=== PATIENT | female | born 1950 | race African-American/Black ===

== ENCOUNTER → 2017-06-13 | Outpatient (CLI) | payer MEDICARE, OTHER ==
[2017-06-13 09:48] LABS: ALT 25 U/L (9-52); AST 20 U/L (14-36); Alkaline Phosphatase 87 U/L (38-126); Anion Gap 10 mmol/L; Blood Urea Nitrogen 25 mg/dL (7-17); Calcium 9.6 mg/dL (8.4-10.2); Carbon Dioxide 23 mmol/L (22-30); Chloride 108 mmol/L (98-107); Cholesterol 110 mg/dL (<200); Glucose 117 mg/dL (74-99); HDL Cholesterol 41 mg/dL (40-60); Non-African American GFR(MDRD) 55 (>60 ml/min/1.73 sqM); Potassium 4.1 mmol/L (3.5-5.1); Sodium 141 mmol/L (137-145); Total Bilirubin 0.6 mg/dL (0.2-1.3); Total Protein 7.4 g/dL (6.3-8.2)
== END | disposition home or self-care (01) ==
LOC: LABWHC1 09:03
PROVIDERS: ATTEND Internal Medicine Clinical Cardiac Electrophysiology
DX: E78.5 Hyperlipidemia, unspecified (principal); I25.10 Atherosclerotic heart disease of native coronary artery without angina pectoris; Z95.1 Presence of aortocoronary bypass graft
CPT/HCPCS: 36415; 80053; 80061; 84443

== ENCOUNTER 2017-07-23 10:01 | Observation (INO) | payer MEDICARE, OTHER ==
[2017-07-23] MEDS ORDERED: SODIUM CHLORIDE 0.9% 500 ML IV STA (10:43)
[2017-07-23] MEDS ORDERED: ONDANSETRON 4 MG/2 ML VIAL IVP STA (10:43)
[2017-07-23] MEDS ORDERED: SODIUM CHLORIDE 0.9% 1,000 ML IV STA (10:43)
[2017-07-23] MEDS ORDERED: ACETAMINOPHEN IV (For NPO) 1,000 MG in EMPTY BAG 1 BAG IVPB STA (10:46)
[2017-07-23] MEDS ORDERED: ORPHENADRINE 30 MG/ML 2 ML VIAL IVP STA (10:46)
[2017-07-23] MEDS ORDERED: RX INFO: IV CONTRAST WAS GIVEN 1 EACH MISC MISCELLANE PRN (10:47)
[2017-07-23 11:38] LABS: Appearance,Urine Clear (Clear); Bacteria,Urine Rare /hpf; Bilirubin,Urine Negative (Negative); Glucose,Urine (UA) Negative (Negative); Ketones,Urine Negative (Negative); Leukocyte Esterase,Urine Moderate (Negative); Nitrite,Urine Negative (Negative); PH, Urine 5.5 (5.0-8.0); Particle Count 1098; Protein,Urine Negative (Negative); RBC,Urine 1 /hpf (0-5); Specific Gravity,Urine 1.013 (1.001-1.035); Squamous Epithelial Cell,Urine <1 /hpf (0-4); UA Billing (MACRO vs. MICRO) MICRO; Urobilinogen,Urine <2.0 mg/dL (<2.0); WBC,Urine 3 /hpf (0-5)
[2017-07-23 11:49] LABS: Basophils % (A) 0 %; CH 30.9; CHCM 33.3; Eosinophils # (A) 0.1 k/uL (0-0.7); Eosinophils % (A) 1 %; HCT 41.4 % (34.0-46.0); HDW 2.71; HGB 13.9 gm/dL (11.4-16.0); Luc # (Auto) 0.12; Luc % (Auto) 1; Lymphocytes # (A) 1.7 k/uL (1.0-4.8); Lymphocytes % (A) 14 %; MCH 31.3 pg (25.0-35.0); MCHC 33.6 g/dL (31.0-37.0); MCV 93.2 fL (80.0-100.0); Mean Platelet Volume 7.1; Monocytes # (A) 0.5 k/uL (0-1.0); Monocytes % (A) 4 %; Neutrophils % (A) 81 %; RBC 4.44 m/uL (3.80-5.40); RDW 13.2 % (11.5-15.5); WBC 12.3 k/uL (3.8-10.6); WBC (Perox) 12.71
[2017-07-23 12:08] LABS: Prothrombin Time 9.9 sec (9.0-12.0)
[2017-07-23 12:12] LABS: ALT 9 U/L (9-52); AST 38 U/L (14-36); Alkaline Phosphatase 97 U/L (38-126); Anion Gap 15 mmol/L; Blood Urea Nitrogen 32 mg/dL (7-17); Calcium 10.7 mg/dL (8.4-10.2); Carbon Dioxide 21 mmol/L (22-30); Chloride 104 mmol/L (98-107); Creatine Kinase 83 U/L (30-135); Glucose 147 mg/dL (74-99); Magnesium 1.8 mg/dL (1.6-2.3); Non-African American GFR(MDRD) 59 (>60 ml/min/1.73 sqM); Phosphorous 3.5 mg/dL (2.5-4.5); Sodium 140 mmol/L (137-145); Total Bilirubin 0.6 mg/dL (0.2-1.3)
[2017-07-23 12:14] LABS: Partial Thromboplastin Time 22.5 sec (22.0-30.0)
[2017-07-23 12:23] LABS: Creatine Kinase MB 0.7 ng/mL (0.0-2.4); Troponin I <0.012 ng/mL (0.000-0.034)
--- NOTE | 2017-07-23 13:06 | ED ---
General Adult HPI - General Chief complaint: Neck Pain/Injury Stated complaint: NECK PAIN Time Seen by Provider: 07/23/17 10:24 Source: patient, RN notes reviewed, old records reviewed Mode of arrival: ambulatory Limitations: no limitations - History of Present Illness Initial comments: This is a 66-year-old female to the ER for evaluation. This patient presents for evaluation regarding neck pain neck and headache. Severe posterior headache anterior headache. Patient states she has history of some chronic back pain over the last 5 days is been severely worse. She states she had a fall 2 years ago on history of that's related. Patient was seen by both her family doctor in urgent care in the last week and was told to come to the ER if no significant improvement in symptoms. Patient has multiple medication ALLERGIES and is having difficult time with pain control at home. She woke up today with severe nausea and dizziness worsened she has had in the past. She cannot move her neck secondary to severe pain. Patient denies any fevers or vomiting. - Related Data Home Medications Medication Instructions Recorded Confirmed Albuterol Inhaler [Ventolin Hfa 2 puff INHALATION RT-Q4H PRN 12/05/14 07/23/17 Inhaler] Allopurinol [Zyloprim] 300 mg PO DAILY 12/05/14 07/23/17 Enalapril [Vasotec] 10 mg PO DAILY 12/05/14 07/23/17 Furosemide [Lasix] 40 mg PO QAM 12/05/14 07/23/17 Insulin Glargine [Lantus] 24 unit SQ DAILY@1200 12/05/14 07/23/17 Isosorbide Mononitrate ER [Imdur] 30 mg PO DAILY 12/05/14 07/23/17 Spironolactone [Aldactone] 25 mg PO DAILY 12/05/14 07/23/17 Furosemide [Lasix] 20 mg PO HS 07/23/17 07/23/17 Insulin Aspart [NovoLOG] See Protocol SQ AC-TID 07/23/17 07/23/17 Magnesium Oxide [Mag-Ox] 400 mg PO DAILY 07/23/17 07/23/17 Ubidecarenone [Co Q-10] 100 mg PO DAILY 07/23/17 07/23/17 metFORMIN HCL 1,000 mg PO BID 07/23/17 07/23/17 Previous Rx's Medication Instructions Recorded Carvedilol 25 mg PO BID #0 12/07/14 Allergies Allergy/AdvReac Type Severity Reaction Status Date / Time acetaminophen [From [place]] AdvReac Rash/Hives Verified 07/23/17 10:15 aspirin AdvReac Rash/Hives Verified 07/23/17 10:15 butorphanol tartrate AdvReac Rash/Hives Verified 07/23/17 10:15 [From Stadol] codeine AdvReac Rash/Hives Verified 07/23/17 10:15 diazepam [From Valium] AdvReac Rash/Hives Verified 07/23/17 10:15 hydrocodone bitartrate AdvReac Rash/Hives Verified 07/23/17 10:15 [From [place]] hydromorphone [From Dilaudid] AdvReac Unknown Verified 07/23/17 10:15 meperidine HCl [From Demerol] AdvReac Rash/Hives Verified 07/23/17 10:15 morphine AdvReac Rash/Hives Verified 07/23/17 10:15 Penicillins AdvReac Rash/Hives Verified 07/23/17 10:15 procaine HCl [From Novocain] AdvReac Rash/Hives Verified 07/23/17 10:15 sulfamethoxazole AdvReac Rash/Hives Verified 07/23/17 10:15 [From Bactrim] sumatriptan [From Imitrex] AdvReac Rash/Hives Verified 07/23/17 10:15 sumatriptan succinate AdvReac Rash/Hives Verified 07/23/17 10:15 [From Imitrex] tramadol AdvReac Rash/Hives Verified 07/23/17 10:15 trimethoprim [From Bactrim] AdvReac Rash/Hives Verified 07/23/17 10:15 Review of Systems ROS Statement: Those systems with pertinent positive or pertinent negative responses have been documented in the HPI. ROS Other: All systems not noted in ROS Statement are negative. Past Medical History Past Medical History: Coronary Artery Disease (CAD), Chest Pain / Angina, CVA/ TIA, Diabetes Mellitus, GERD/Reflux, Hyperlipidemia, Hypertension, Seizure Disorder Additional Past Medical History / Comment(s): HX MIGRAINE, GOUT, CHRONIC SINUSITIS, LAST SEIZURE IN S, TIA IN S History of Any Multi-Drug Resistant Organisms: None Reported Past Surgical History: Cholecystectomy, Coronary Bypass/CABG, Heart Catheterization With Stent, Tubal Ligation Additional Past Surgical History / Comment(s): UNSURE HOW MANY STENTS, JULIA CATARACTS, SINUS SX, CABG X3 2009 Past Anesthesia/Blood Transfusion Reactions: No Reported Reaction Date of Last Stent Placement:: UNSURE Past Psychological History: No Psychological Hx Reported Smoking Status: Never smoker Past Alcohol Use History: None Reported Past Drug Use History: None Reported - Past Family History Mother Family Medical History: Coronary Artery Disease (CAD) General Exam Limitations: no limitations General appearance: alert, in no apparent distress Head exam: Present: atraumatic, normocephalic, normal inspection Eye exam: Present: normal appearance, PERRL, EOMI. Absent: scleral icterus, conjunctival injection, periorbital swelling ENT exam: Present: normal exam, mucous membranes moist Neck exam: Present: normal inspection. Absent: tenderness, meningismus, lymphadenopathy Respiratory exam: Present: normal lung sounds bilaterally. Absent: respiratory distress, wheezes, rales, rhonchi, stridor Cardiovascular Exam: Present: regular rate, normal rhythm, normal heart sounds. Absent: systolic murmur, diastolic murmur, rubs, gallop, clicks GI/Abdominal exam: Present: soft, normal bowel sounds. Absent: distended, tenderness, guarding, rebound, rigid Extremities exam: Present: normal inspection, full ROM, normal capillary refill. Absent: tenderness, pedal edema, joint swelling, calf tenderness Back exam: Present: normal inspection Neurological exam: Present: alert, oriented X3, CN II-XII intact Psychiatric exam: Present: normal affect, normal mood Skin exam: Present: warm, dry, intact, normal color. Absent: rash Course Vital Signs 07/23/17 07/23/17 10:04 13:50 Temperature 98.3 F 97.9 F Pulse Rate 77 69 Respiratory 18 18 Rate Blood Pressure 188/80 142/79 O2 Sat by Pulse 100 96 Oximetry - Reevaluation(s) Reevaluation #1: 07/23/17 14:16 patient will have pain control, no neuro deficit Medical Decision Making - Medical Decision Making 66 female to ED with uncontrolled neck pain, will admit for ortho evaluation, pain control - Lab Data Result diagrams: 07/23/17 11:16 07/23/17 11:16 Lab Results 07/23/17 07/23/17 07/23/17 Range/Units 11:16 11:16 11:16 WBC 12.3 H (3.8-10.6) k/uL RBC 4.44 (3.80-5.40) m/uL Hgb 13.9 (11.4-16.0) gm/dL Hct 41.4 (34.0-46.0) % MCV 93.2 (80.0-100.0) fL MCH 31.3 (25.0-35.0) pg MCHC 33.6 (31.0-37.0) g/dL RDW 13.2 (11.5-15.5) % Plt Count 349 (150-450) k/uL Neutrophils % 81 % Lymphocytes % 14 % Monocytes % 4 % Eosinophils % 1 % Basophils % 0 % Neutrophils # 10.0 H (1.3-7.7) k/uL Lymphocytes # 1.7 (1.0-4.8) k/uL Monocytes # 0.5 (0-1.0) k/uL Eosinophils # 0.1 (0-0.7) k/uL Basophils # 0.0 (0-0.2) k/uL PT (9.0-12.0) sec INR (<1.2) APTT (22.0-30.0) sec Sodium 140 (137-145) mmol/L Potassium 5.0 (3.5-5.1) mmol/L Chloride 104 (98-107) mmol/L Carbon Dioxide 21 L (22-30) mmol/L Anion Gap 15 mmol/L BUN 32 H (7-17) mg/dL Creatinine 0.94 (0.52-1.04) mg/dL Est GFR (MDRD) Af Amer >60 (>60 ml/min/1.73 sqM) Est GFR (MDRD) Non-Af 59 (>60 ml/min/1.73 sqM) Glucose 147 H (74-99) mg/dL Calcium 10.7 H (8.4-10.2) mg/dL Phosphorus 3.5 (2.5-4.5) mg/dL Magnesium 1.8 (1.6-2.3) mg/dL Total Bilirubin 0.6 (0.2-1.3) mg/dL AST 38 H (14-36) U/L ALT 9 (9-52) U/L Alkaline Phosphatase 97 (38-126) U/L Total Creatine Kinase 83 (30-135) U/L CK-MB (CK-2) 0.7 (0.0-2.4) ng/mL CK-MB (CK-2) Rel Index 0.8 Troponin I <0.012 (0.000-0.034) ng/mL Total Protein 9.0 H (6.3-8.2) g/dL Albumin 4.6 (3.5-5.0) g/dL Urine Color Urine Appearance (Clear) Urine pH (5.0-8.0) Ur Specific [place] (1.001-1.035) Urine Protein (Negative) Urine Glucose (UA) (Negative) Urine Ketones (Negative) Urine Blood (Negative) Urine Nitrite (Negative) Urine Bilirubin (Negative) Urine Urobilinogen (<2.0) mg/dL Ur Leukocyte Esterase (Negative) Urine RBC (0-5) /hpf Urine WBC (0-5) /hpf Ur Squamous Epith Cells (0-4) /hpf Urine Bacteria (None) /hpf Hyaline Casts (0-2) /lpf 07/23/17 07/23/17 Range/Units 11:16 11:16 WBC (3.8-10.6) k/uL RBC (3.80-5.40) m/uL Hgb (11.4-16.0) gm/dL Hct (34.0-46.0) % MCV (80.0-100.0) fL MCH (25.0-35.0) pg MCHC (31.0-37.0) g/dL RDW (11.5-15.5) % Plt Count (150-450) k/uL Neutrophils % % Lymphocytes % % Monocytes % % Eosinophils % % Basophils % % Neutrophils # (1.3-7.7) k/uL Lymphocytes # (1.0-4.8) k/uL Monocytes # (0-1.0) k/uL Eosinophils # (0-0.7) k/uL Basophils # (0-0.2) k/uL PT 9.9 (9.0-12.0) sec INR 1.0 (<1.2) APTT 22.5 (22.0-30.0) sec Sodium (137-145) mmol/L Potassium (3.5-5.1) mmol/L Chloride (98-107) mmol/L Carbon Dioxide (22-30) mmol/L Anion Gap mmol/L BUN (7-17) mg/dL Creatinine (0.52-1.04) mg/dL Est GFR (MDRD) Af Amer (>60 ml/min/1.73 sqM) Est GFR (MDRD) Non-Af (>60 ml/min/1.73 sqM) Glucose (74-99) mg/dL Calcium (8.4-10.2) mg/dL Phosphorus (2.5-4.5) mg/dL Magnesium (1.6-2.3) mg/dL Total Bilirubin (0.2-1.3) mg/dL AST (14-36) U/L ALT (9-52) U/L Alkaline Phosphatase (38-126) U/L Total Creatine Kinase (30-135) U/L CK-MB (CK-2) (0.0-2.4) ng/mL CK-MB (CK-2) Rel Index Troponin I (0.000-0.034) ng/mL Total Protein (6.3-8.2) g/dL Albumin (3.5-5.0) g/dL Urine Color Yellow Urine Appearance Clear (Clear) Urine pH 5.5 (5.0-8.0) Ur Specific [place] 1.013 (1.001-1.035) Urine Protein Negative (Negative) Urine Glucose (UA) Negative (Negative) Urine Ketones Negative (Negative) Urine Blood Trace H (Negative) Urine Nitrite Negative (Negative) Urine Bilirubin Negative (Negative) Urine Urobilinogen <2.0 (<2.0) mg/dL Ur Leukocyte Esterase Moderate H (Negative) Urine RBC 1 (0-5) /hpf Urine WBC 3 (0-5) /hpf Ur Squamous Epith Cells <1 (0-4) /hpf Urine Bacteria Rare H (None) /hpf Hyaline Casts 10 H (0-2) /lpf - Radiology Data Radiology results: report reviewed (CT brain angio head and neck is negative for acute disease), image reviewed Disposition Clinical Impression: Strain of neck muscle, Disc disorder of cervical region, Cervical radiculopathy Disposition: ADMITTED IP TO THIS HOSP Condition: Fair Referrals: Boaz Mcgovern MD [Primary Care Provider] - 1-2 days
--- NOTE | 2017-07-23 13:25 | CT ---
EXAMINATION TYPE: CT brain wo con DATE OF EXAM: 07/23/2017 COMPARISON: 08/31/2011 HISTORY: Patient complains of headache and neck pain. CT DLP: 808.1 mGycm. Automated Exposure Control for Dose Reduction was Utilized. TECHNIQUE: CT scan of the head is performed without contrast. FINDINGS: There is no acute intracranial hemorrhage, mass effect, or midline shift identified. Ther e is symmetric prominence of the ventricular system and peripheral sulci compatible with minimal age- related volume loss, similar to the prior exam. Few scattered areas of T2 hyperintensity are seen wit hin the subcortical and periventricular white matter, as seen on the prior examination in 2010. No [place] spicious extra-axial fluid collection is identified. The globes are intact and the visualized sinuses are clear. Atherosclerosis is seen of the intracranial vasculature. IMPRESSION: No acute intracranial hemorrhage, mass effect, or midline shift is seen. Similar-appeari ng mild nonspecific white matter changes and minimal likely age-related cerebral atrophy in compariso n the prior exam of 2010.
--- NOTE | 2017-07-23 13:42 | CT ---
EXAMINATION TYPE: CT angio head neck DATE OF EXAM: 07/23/2017 HISTORY: Head pain and neck pain COMPARISON: CT brain of the same date CT DLP: 808.1 mGycm. Automated Exposure Control for Dose Reduction was Utilized. TECHNIQUE: CTA scan of the neck is performed with IV Contrast, per protocol, axial images are obtain ed, coronal and sagittal reformatted images are reviewed. Three-D reconstructed images are created on an independent workstation and reviewed. FINDINGS: Carotid/Vascular Structures: Minimal nonhemodynamically significant calcific atheromatous plaquing is seen of the bilateral cavernous portions and supraclinoid portions of the internal carotid arteries. This is less than 50% of the luminal diameter. The [place] of [place] is intact although the right pos terior communicating artery is diminutive. There is tortuosity of the left vertebral artery as it cou rses to the right of midline. Vertebral arteries are codominant without evidence of dissection or gali nosis. Note is made of a bovine aortic arch. No ostial stenosis is seen at the origin of the great vessels. Within the carotid bulbs there is atheromatous calcific plaquing, nonhemodynamically significant on t he left and creating 50% stenosis of the left internal carotid artery within a short segment of 6 mm just distal to the bifurcation. Other: Within the visualized lung apices there is minimal dependent subsegmental atelectasis. Multile maxwell degenerative changes of the cervical spine are seen displayed is uncovertebral hypertrophy, inter vertebral disc space narrowing, disc osteophyte complexes and facet arthropathy. Heterogeneity of the thyroid gland is noted. IMPRESSION: 1. No evidence of arterial occlusion, dissection or aneurysm within the head or neck. 2. Short segment stenosis created by calcific atheromatous changes of 50% of the left internal caroti d artery just distal to the left carotid bulb spanning 6 mm in length.
[2017-07-23] MEDS ORDERED: ALBUTEROL NEBULIZED 2.5 MG/3 ML INHALATION PRN (15:35)
--- NOTE | 2017-07-23 16:23 | XR ---
EXAMINATION TYPE: XR cervical spine comp DATE OF EXAM: 07/23/2017 TECHNIQUE: Frontal, lateral, oblique, swimmers, and open mouth view of the cervical spine are obtaine d. HISTORY: neck stiff with discogenic disease and severe pain COMPARISON: CT angiogram head and neck dated 07/23/2017. Radiographs of the cervical spine dated 013 FINDINGS: Multilevel degenerative disc disease is seen most pronounced at C4-C5, C5-C6 and C6-C7. Yunier ral foraminal narrowing at least mild in degree is present at C3-C4 on the left. Right neural foramen appear overall radiographically patent. Multilevel mild uncovertebral hypertrophy is seen. This has progressed from the prior exam. The cervical spine is visualized in its entirety from C1 thru the top of T1 level, it is satisfactory in alignment without evidence of acute fracture or dislocation. The pre-vertebral soft tissue appears within normal limits. The C1-C2 articulation is within normal lyle its on the open mouth view. The oblique images are within normal limits. Partial visualization of me diane sternotomy wires are seen with dehiscence of the most superior sternotomy wire. As seen on the p rior CTA dated 07/23/2017 atheromatous calcifications are seen of the left internal carotid artery. IMPRESSION: 1. No acute fracture or dislocation is seen in the cervical spine. 2. Multilevel degenerative disc disease, progressed from the prior exam of 01/20/2013 with at least mil d neural foraminal stenosis at C3-C4 on the left.
--- NOTE | 2017-07-23 16:25 | XR ---
EXAMINATION TYPE: XR thoracic spine complete DATE OF EXAM: 07/23/2017 CLINICAL HISTORY: Fall with mid back pain. TECHNIQUE: Frontal, lateral, and swimmer's view of thoracic spine are obtained. COMPARISON: None. FINDINGS: Thoracic spine show satisfactory alignment without evidence of acute fracture or dislocatio n. Flowing osteophytes are present of the anterior thoracic spine suggestive of moderate degenerativ e change. Vertebral body heights and disc space heights are preserved. Visualized ribs are unremarkab le. Dehiscence of multiple sternotomy wires are seen as well as mediastinal clips. Surgical clips a re also noted in the left upper quadrant and right upper quadrant. IMPRESSION: 1. No acute fracture or dislocation is seen in the thoracic spine. 2. Multilevel degenerative disc disease, at least moderate in degree. 3. Dehiscence of multiple median sternotomy wires and postsurgical changes of the chest and upper abd omen.
--- NOTE | 2017-07-23 17:30 | P.HPIM ---
History of Present Illness This is a dictation on admission history and physical date of service [address] Froilan Green [facility] Patient has no ALLERGY to Tylenol. And order was written as patient has ALLERGY for oral narcotics but not for a C2 metanephrine she had ALLERGY to Dilaudid and morphine Toradol and hydrocodone and codeine. Chief complaint: Patient had severe neck pain for 1 week duration with inability to sleep to sit or to do all her daily ADLs, disabling pain in the neck and goes down to cervical spine to dorsal spine. Patient went to the ER at [facility] she was treated with injection of Dilantin, she came back in a.m. to the office with the acute reaction from Dilantin and treated with Kenalog IM 40 mg. Today patient came to the office with this severe pain in the neck with the stiffness and localized tenderness on the cervical spine, associated with numbness of the upper extremities intermittent on the left arm and on the right arm, stent with taking the ulnar side of her hand. Her foot flexion and extension has been compromised with wobbly feet. I did advise her to come to the emergency room for evaluation, however patient received computed tomography scan of the brain which is normal and we know that it is normal, and she received a CTA neck which consult rating on the blood flow in the neck and despite that patient had localized tenderness on the cervical spine by just palpation which causing also severe pain the level of 12/ 10. History of present illness: Patient with history of chronic medical problem however these event started 1 week ago and progressively she could not sit or stand or sleep and the associated with severe pain in her neck could not move from [id number] or from posterior to anterior no evidence of infection. And her vital sign was stable and diabetes mellitus has been controlled so far. On her presentation in the emergency room: Found that she had hyper proteinemia , hypercalcemia, of unknown etiology. Magnesium was normal a suspicious of multiple myeloma was considered with the neck pain and far failure order has been placed for protein electrophoresis and immunoelectrophoresis as well as urine electrophoresis. Patient has a history of diabetes mellitus type 2 insulin-dependent she was on pump in the past and did not work for her and change it to regular insulin injection. She is on Plavix 75 mg daily and Lantus insulin 24 units daily at bedtime she is also on Lipitor 20 mg at at bedtime she was as well on enalapril 10 mg half a tablet daily as well as then to lean inhalation 4 history of COPD 19 micro-gram per inhalation. She is on Glucophage as well 1 tablet daily she is on Lasix 20 mg daily and Senokot S 50 mg/8.6 she is having ALLERGY and she used to take Margaret 24 hour which is 180 mg daily. She has been using Lamisil for acid-related foot 1% cream on the right toes and between the toes of the right foot she has also NovoLog and NovoLog 100 units she take according to scale before meals meal. She is history of gout and she take 150 mg once a day. Carvedilol 25 mg twice a day Lipitor 20 mg once a day at at bedtime and Pepcid 20 mg twice a day for GERD disease and she also was taken call Q10 300 mg once a day and salt magnesium oxide 400 mg 1 tablet daily and she taken Centrum Silver woman's and she taken metoprolol succinate ER 25 mg once a day and she taken isosorbide mononitrate 30 mg once a day. Reviewing of system neuropsychiatry negative and history of migraine only not present at this time Past history of T7 and T8 radiation. Cardiovascular: History of coronary artery bypass graft 3. Pulmonary history of COPD and using inhalation therapy GI no nausea or vomiting or diarrhea at this time but she has history of nausea in the past. Musculoskeletal she used to see Dr Tejas miner. And she used to be no limitation and no neck pain prior to these event. Endocrine diabetes mellitus2. Past history of T7 and T8 disc herniation. She had numbness in the right upper extremity the ulnar side, stent and numbness of the left upper extremity intermittent. She is able still to ambulate. Rest of reviewing of system is negative no hematochezia and no hematemesis no melena. On the physical examination: HEENT: The head was normocephalic and atraumatic pupil was reactive equal conjunctiva was pink sclera was nonicteric oropharynx was negative and she was able to eat. Neck supple however she could not move her neck [id number] or from anterior to posterior. With the palpation severe pain 10 over 10 or more especially with the palpation had C3, C4, C7. Could not lay flat with the pressure on the pill trachea midline. The chest: She had a central median scar from coronary artery bypass graft 3. No supraclavicular lymph nodes and no auxiliary lymph nodes. Breasts sound normal no wheezes nor rhonchi's. Heart regular sinus rhythm no pace maker. Abdomen soft positive bowel sound and no nausea or vomiting Extremities: Positive pulses and no edema with a history of tinea pedis resolved but she has a step for plantarflex and weaker in both lower his extremities dorsiflexion and plantar flexion. Assessment: #1 severe pain in the cervical spine on palpation with the neurological numbness and tingling in both upper extremities started within 1 week duration x-ray of the cervical spine indicate currently disc disease however x-ray is not too clear association and we will be obtaining MRI of cervical spine. #[address] Oniel Murdock orthopedic surgeon for evaluation and treatment and also the x-ray of the spine as well as the MRI. #3 unfortunately patient has ALLERGY to all pain medication and we will be using the Tylenol which is not ALLERGIC to until we have complete the investigation if we could not solve her problem probably will request a pain consult #4 hypercalcemia, hyper proteinemia unknown reason at this time however laboratory was ordered for 5 for clarification or association with other diseases as multiple myeloma. Plan: #1 will continue gentle hydration, obtain laboratory and will resume her Lipitor and Plavix after evaluation by Dr. Oniel lopez to continue her current home medication and the insulin to scale as well Past Medical History Past Medical History: Coronary Artery Disease (CAD), Chest Pain / Angina, CVA/ TIA, Diabetes Mellitus, GERD/Reflux, Hyperlipidemia, Hypertension, Seizure Disorder Additional Past Medical History / Comment(s): HX MIGRAINE, GOUT, CHRONIC SINUSITIS, LAST SEIZURE IN , TIA IN S History of Any Multi-Drug Resistant Organisms: None Reported Past Surgical History: Cholecystectomy, Coronary Bypass/CABG, Heart Catheterization With Stent, Tubal Ligation Additional Past Surgical History / Comment(s): UNSURE HOW MANY STENTS, JULIA CATARACTS, SINUS SX, CABG X3 2009 Past Anesthesia/Blood Transfusion Reactions: No Reported Reaction Date of Last Stent Placement:: UNSURE Past Psychological History: No Psychological Hx Reported Smoking Status: Never smoker Past Alcohol Use History: None Reported Past Drug Use History: None Reported - Past Family History Mother Family Medical History: Coronary Artery Disease (CAD) Medications and Allergies Home Medications Medication Instructions Recorded Confirmed Type Albuterol Inhaler [Ventolin Hfa 2 puff INHALATION RT-Q4H PRN 12/05/14 07/23/17 History Inhaler] Allopurinol [Zyloprim] 300 mg PO DAILY 12/05/14 07/23/17 History Enalapril [Vasotec] 10 mg PO DAILY 12/05/14 07/23/17 History Furosemide [Lasix] 40 mg PO QAM 12/05/14 07/23/17 History Insulin Glargine [Lantus] 24 unit SQ DAILY@1200 12/05/14 07/23/17 History Isosorbide Mononitrate ER [Imdur] 30 mg PO DAILY 12/05/14 07/23/17 History Spironolactone [Aldactone] 25 mg PO DAILY 12/05/14 07/23/17 History Carvedilol 25 mg PO BID #0 12/07/14 07/23/17 Rx Furosemide [Lasix] 20 mg PO HS 07/23/17 07/23/17 History Insulin Aspart [NovoLOG] See Protocol SQ AC-TID 07/23/17 07/23/17 History Magnesium Oxide [Mag-Ox] 400 mg PO DAILY 07/23/17 07/23/17 History Ubidecarenone [Co Q-10] 100 mg PO DAILY 07/23/17 07/23/17 History metFORMIN HCL 1,000 mg PO BID 07/23/17 07/23/17 History Allergies Allergy/AdvReac Type Severity Reaction Status Date / Time acetaminophen [From [place]] AdvReac Rash/Hives Verified 07/23/17 10:15 aspirin AdvReac Rash/Hives Verified 07/23/17 10:15 butorphanol tartrate AdvReac Rash/Hives Verified 07/23/17 10:15 [From Stadol] codeine AdvReac Rash/Hives Verified 07/23/17 10:15 diazepam [From Valium] AdvReac Rash/Hives Verified 07/23/17 10:15 hydrocodone bitartrate AdvReac Rash/Hives Verified 07/23/17 10:15 [From [place]] hydromorphone [From Dilaudid] AdvReac Unknown Verified 07/23/17 10:15 meperidine HCl [From Demerol] AdvReac Rash/Hives Verified 07/23/17 10:15 morphine AdvReac Rash/Hives Verified 07/23/17 10:15 Penicillins AdvReac Rash/Hives Verified 07/23/17 10:15 procaine HCl [From Novocain] AdvReac Rash/Hives Verified 07/23/17 10:15 sulfamethoxazole AdvReac Rash/Hives Verified 07/23/17 10:15 [From Bactrim] sumatriptan [From Imitrex] AdvReac Rash/Hives Verified 07/23/17 10:15 sumatriptan succinate AdvReac Rash/Hives Verified 07/23/17 10:15 [From Imitrex] tramadol AdvReac Rash/Hives Verified 07/23/17 10:15 trimethoprim [From Bactrim] AdvReac Rash/Hives Verified 07/23/17 10:15 Physical Exam Vitals: Vital Signs Temp Pulse Pulse Resp BP BP Pulse Ox 07/23/17 16:37 97.6 F 66 20 137/68 98 07/23/17 13:50 97.9 F 69 18 142/79 96 07/23/17 10:04 98.3 F 77 18 188/80 100 Intake and Output 07/23/17 07/23/17 07/23/17 06:59 14:59 22:59 Other: Weight 72.121 kg Patient Weight 07/24/17 06:59 Weight 72.121 kg Results CBC & Chem 7: 07/23/17 11:16 07/23/17 11:16 Labs: Abnormal Lab Results - Last 24 Hours (Table) 07/23/17 07/23/17 07/23/17 Range/Units 11:16 11:16 11:16 WBC 12.3 H (3.8-10.6) k/uL Neutrophils # 10.0 H (1.3-7.7) k/uL Carbon Dioxide 21 L (22-30) mmol/L BUN 32 H (7-17) mg/dL Glucose 147 H (74-99) mg/dL Calcium 10.7 H (8.4-10.2) mg/dL AST 38 H (14-36) U/L Total Protein 9.0 H (6.3-8.2) g/dL Urine Blood Trace H (Negative) Ur Leukocyte Esterase Moderate H (Negative) Urine Bacteria Rare H (None) /hpf Hyaline Casts 10 H (0-2) /lpf
--- NOTE | 2017-07-23 17:57 | MR ---
EXAMINATION TYPE: MR cervical spine wo con DATE OF EXAM ORDERED: 07/23/2017 5:46 PM HISTORY: [place], pain on palpation of cervical spine. TECHNOLOGIST HISTORY AT TIME OF EXAM: [place], pain on palpation of cervical spine, Pain shot done 07-22-17 COMPARISON: None. TECHNIQUE: Multiplanar, multiecho imaging of the cervical spine was obtained without contrast on a 1 .5 dona magnet. FINDINGS: Prevertebral soft tissues are normal. Vertebral body height and alignment are maintained. Atlantoaxial relationships are normal. There is a normal craniocervical junction. Cord signal is normal. At C2-C3, no abnormality is seen. At C3-C4, there is left-sided intervertebral foraminal narrowing. There is no significant compressive discopathy. There is left facet arthropathy. At C4-C5, there is bilateral intervertebral foraminal narrowing, worse on the left than the right. Th ere is facet arthropathy on the left. There is no significant compressive discopathy. The uncovertebr al joints are unremarkable. At C5-C6, the intervertebral foramina are well maintained. There is a tiny central disc displacement deforming the thecal sac without cord contact there is mild facet arthropathy. There is mild uncovert ebral joint disease. At C6-C7, the intervertebral foramina are well maintained. There is no significant compressive discop athy. The facets are unremarkable. There is mild uncovertebral joint disease. At C7-T1, no definite abnormality is seen. No definite soft tissue abnormality is seen. IMPRESSION: 1. MILD DEGENERATIVE DISC DISEASE. 2. MULTILEVEL INTERVERTEBRAL FORAMINAL NARROWING. 3. MILD FACET AND UNCOVERTEBRAL JOINT DISEASE.
[2017-07-23] MEDS: ACETAMINOPHEN TAB 325 MG TAB PO PRN ×2 (18:09→21:53)
[2017-07-23] MEDS: CARVEDILOL 12.5 MG TAB PO SCH (18:10)
[2017-07-23] MEDS: metFORMIN 500 MG TAB PO SCH (18:37)
[2017-07-23] MEDS: INSULIN LISPRO (humaLOG) 300 UNIT/3 ML VIAL SQ SCH (18:38)
[2017-07-23 18:39] LABS: Glucose,Whole Blood 248 mg/dL (75-99)
[2017-07-23 20:14] VITALS: BMI 28.0
[2017-07-23] MEDS ORDERED: INSULIN GLARGINE 100 UNIT/ML 10 ML VIAL SQ SCH (21:00)
[2017-07-23] MEDS ORDERED: FUROSEMIDE 20 MG TAB PO SCH (21:00)
[2017-07-23 21:39] LABS: Glucose,Whole Blood 258 mg/dL (75-99)
[2017-07-23] MEDS: ATORVASTATIN 20 MG TAB PO SCH (21:53)
[2017-07-24] MEDS: ACETAMINOPHEN TAB 325 MG TAB PO PRN ×2 (06:19→21:20)
[2017-07-24 07:27] LABS: Glucose,Whole Blood 209 mg/dL (75-99)
[2017-07-24] MEDS: INSULIN LISPRO (humaLOG) 300 UNIT/3 ML VIAL SQ SCH ×3 (07:46→17:21)
[2017-07-24] MEDS: CARVEDILOL 12.5 MG TAB PO SCH ×2 (07:46→17:20)
[2017-07-24] MEDS: metFORMIN 500 MG TAB PO SCH ×2 (07:47→17:20)
[2017-07-24] MEDS: ALLOPURINOL 300 MG TAB PO SCH (07:47)
[2017-07-24] MEDS: MAGNESIUM OXIDE 400 MG TAB PO SCH (07:48)
[2017-07-24] MEDS: FUROSEMIDE 40 MG TAB PO SCH (07:48)
[2017-07-24] MEDS: LISINOPRIL 20 MG TAB PO SCH (07:48)
[2017-07-24] MEDS: ISOSORBIDE MONONITRATE ER 30 MG TAB.ER.24H PO SCH (07:48)
[2017-07-24] MEDS: SPIRONOLACTONE 25 MG TAB PO SCH (07:49)
--- NOTE | 2017-07-24 08:46 | P.CNOR ---
History of Present Illness - [facility] Consult date: 07/24/17 Requesting physician: Rafael Kirby Consult reason: neck pain (Right sided cervical pain, right upper extremity radiculopathy, and left upper extremity pain) History of present illness: Patient is a very pleasant 66-year-old female who is seen at bedside for further evaluation for her ongoing cervical pain and upper extremity pain and radiculopathy. Patient states she's been experiencing numbness and tingling down the right forearm to the right ring finger and pinky finger over the past 6 -7 months. Over the past week, she's been experiencing significant right-sided cervical pain that radiates up the posterior cervical spine, and over the head. She has pain that shoots over the right trapezius to the shoulder. She is also been experiencing pain down the left upper extremity. He states she has some weakness with the right upper extremity due to pain at the shoulder, biceps , and tricep. She admits to bilateral weakness with director biostatistics that has been ongoing. She denies any recent falls, accidents, or injuries. She states she does have a history of migraine headaches previously. She had an MRI of cervical spine prior to today's examination. She has significant difficulty with narcotic pain medication due to ALLERGY. She's currently being seen and examined by Dr. Mcgovern. Past Medical History Past Medical History: Coronary Artery Disease (CAD), Chest Pain / Angina, CVA/ TIA, Diabetes Mellitus, GERD/Reflux, Hyperlipidemia, Hypertension, Seizure Disorder Additional Past Medical History / Comment(s): HX MIGRAINE, GOUT, CHRONIC SINUSITIS, LAST SEIZURE IN 1979'S, TIA IN 1970'S History of Any Multi-Drug Resistant Organisms: None Reported Past Surgical History: Cholecystectomy, Coronary Bypass/CABG, Heart Catheterization With Stent, Tubal Ligation Additional Past Surgical History / Comment(s): UNSURE HOW MANY STENTS, JULIA CATARACTS, SINUS SX, CABG X3 2009 Past Anesthesia/Blood Transfusion Reactions: No Reported Reaction Date of Last Stent Placement:: UNSURE Past Psychological History: No Psychological Hx Reported Smoking Status: Never smoker Past Alcohol Use History: None Reported Past Drug Use History: None Reported - Past Family History Mother Family Medical History: Coronary Artery Disease (CAD) Medications and Allergies Home Medications Medication Instructions Recorded Confirmed Type Albuterol Inhaler [Ventolin Hfa 2 puff INHALATION RT-Q4H PRN 12/05/14 07/23/17 History Inhaler] Allopurinol [Zyloprim] 300 mg PO DAILY 12/05/14 07/23/17 History Enalapril [Vasotec] 10 mg PO DAILY 12/05/14 07/23/17 History Furosemide [Lasix] 40 mg PO QAM 12/05/14 07/23/17 History Insulin Glargine [Lantus] 24 unit SQ DAILY@1200 12/05/14 07/23/17 History Isosorbide Mononitrate ER [Imdur] 30 mg PO DAILY 12/05/14 07/23/17 History Spironolactone [Aldactone] 25 mg PO DAILY 12/05/14 07/23/17 History Carvedilol 25 mg PO BID #0 12/07/14 07/23/17 Rx Furosemide [Lasix] 20 mg PO HS 07/23/17 07/23/17 History Insulin Aspart [NovoLOG] See Protocol SQ AC-TID 07/23/17 07/23/17 History Magnesium Oxide [Mag-Ox] 400 mg PO DAILY 07/23/17 07/23/17 History Ubidecarenone [Co Q-10] 100 mg PO DAILY 07/23/17 07/23/17 History metFORMIN HCL 1,000 mg PO BID 07/23/17 07/23/17 History Allergies Allergy/AdvReac Type Severity Reaction Status Date / Time aspirin AdvReac Rash/Hives Verified 07/23/17 10:15 butorphanol tartrate AdvReac Rash/Hives Verified 07/23/17 10:15 [From Stadol] codeine AdvReac Rash/Hives Verified 07/23/17 10:15 diazepam [From Valium] AdvReac Rash/Hives Verified 07/23/17 10:15 hydrocodone bitartrate AdvReac Rash/Hives Verified 07/23/17 10:15 [From [place]] hydromorphone [From Dilaudid] AdvReac Unknown Verified 07/23/17 10:15 meperidine HCl [From Demerol] AdvReac Rash/Hives Verified 07/23/17 10:15 morphine AdvReac Rash/Hives Verified 07/23/17 10:15 Penicillins AdvReac Rash/Hives Verified 07/23/17 10:15 procaine HCl [From Novocain] AdvReac Rash/Hives Verified 07/23/17 10:15 sulfamethoxazole AdvReac Rash/Hives Verified 07/23/17 10:15 [From Bactrim] sumatriptan [From Imitrex] AdvReac Rash/Hives Verified 07/23/17 10:15 sumatriptan succinate AdvReac Rash/Hives Verified 07/23/17 10:15 [From Imitrex] tramadol AdvReac Rash/Hives Verified 07/23/17 10:15 trimethoprim [From Bactrim] AdvReac Rash/Hives Verified 07/23/17 10:15 Physical Examination Physical exam: Patient is awake, alert, and oriented 3 Vital signs stable Good chest excursion with deep inspiration and expiration Examination of the cervical spine reveals skin is intact with no abrasions, aspirations, or bruises; no erythema, purulence or signs of infection Some pain with palpation over the right trapezius and posterior cervical spine at approximately C7 Adequate range of motion of the cervical spine with adequate flexion, extension , and bilateral rotation Spasm over the right trapezius [employer] strength, thumb strength, interosseous strength, biceps strength, triceps strength, and shoulder strength positive sustained bilaterally Upper left extremity strength 5/5 bilaterally, except for director biostatistics which is 4-/5 [employer] strength of the left upper extremity is 4-/5 Reduced right upper extremity strength with triceps, biceps, and deltoid against resistance due to pain Adequate range of motion the right upper extremity with active and passive range of motion Biceps reflex 1+ bilaterally and Brachioradialis reflexes 1+ bilaterally No upper extremity hyperreflexia bilaterally Hoffmans sign negative upper extremity bilaterally No signs or symptoms of DVT; no calf pain Results MRI of the cervical spine: C3-4 left facet arthropathy and left neuroforaminal narrowing; C4-5 left facet arthropathy and bilateral neural foraminal narrowing greater on the left than right; C5-6 facet arthropathy; overall alignment appears to be adequately maintained; no evidence of vertebral body compression fracture; vertebral disc heights appear to be fairly well maintained with mild degenerative disc disease; no definite soft tissue abnormality seen; no evidence of significant spinal canal stenosis or neural foraminal stenosis throughout the cervical spine X-rays of thoracic spine: No evidence of acute fracture dislocation of thoracic spine; multilevel degenerative disc disease; evidence of multiple sternotomy wires; evidence of mediastinal clips; Evidence of surgical clips in the bilateral upper quadrants X-rays of the cervical spine: Mild early degenerative disc disease C4-5, C5-6, and C6-7; overall alignment appears to be adequately maintained; no evidence of vertebral body compression fracture - Labs Labs: Abnormal Lab Results - Last 24 Hours (Table) 07/23/17 07/23/17 07/23/17 Range/Units 11:16 11:16 11:16 WBC 12.3 H (3.8-10.6) k/uL Neutrophils # 10.0 H (1.3-7.7) k/uL Carbon Dioxide 21 L (22-30) mmol/L BUN 32 H (7-17) mg/dL Glucose 147 H (74-99) mg/dL POC Glucose (mg/dL) (75-99) mg/dL Calcium 10.7 H (8.4-10.2) mg/dL AST 38 H (14-36) U/L Total Protein 9.0 H (6.3-8.2) g/dL Total Protein (PEP) (6.2-8.2) g/dL Urine Blood Trace H (Negative) Ur Leukocyte Esterase Moderate H (Negative) Urine Bacteria Rare H (None) /hpf Hyaline Casts 10 H (0-2) /lpf 07/23/17 07/23/17 07/23/17 Range/Units 11:16 18:35 21:12 WBC (3.8-10.6) k/uL Neutrophils # (1.3-7.7) k/uL Carbon Dioxide (22-30) mmol/L BUN (7-17) mg/dL Glucose (74-99) mg/dL POC Glucose (mg/dL) 248 H 258 H (75-99) mg/dL Calcium (8.4-10.2) mg/dL AST (14-36) U/L Total Protein (6.3-8.2) g/dL Total Protein (PEP) 8.7 H (6.2-8.2) g/dL Urine Blood (Negative) Ur Leukocyte Esterase (Negative) Urine Bacteria (None) /hpf Hyaline Casts (0-2) /lpf 07/24/17 Range/Units 07:16 WBC (3.8-10.6) k/uL Neutrophils # (1.3-7.7) k/uL Carbon Dioxide (22-30) mmol/L BUN (7-17) mg/dL Glucose (74-99) mg/dL POC Glucose (mg/dL) 209 H (75-99) mg/dL Calcium (8.4-10.2) mg/dL AST (14-36) U/L Total Protein (6.3-8.2) g/dL Total Protein (PEP) (6.2-8.2) g/dL Urine Blood (Negative) Ur Leukocyte Esterase (Negative) Urine Bacteria (None) /hpf Hyaline Casts (0-2) /lpf H & H 07/23/17 Range/Units 11:16 Hgb 13.9 (11.4-16.0) gm/dL Hct 41.4 (34.0-46.0) % Coagulation 07/23/17 Range/Units 11:16 INR 1.0 (<1.2) Result Diagrams: 07/23/17 11:16 07/23/17 11:16 Assessment and Plan (1) Cervicalgia Status: Acute (2) Upper extremity weakness Status: Acute (3) Cervical spondylosis Status: Acute (4) Degenerative disc disease, cervical Status: Acute (5) Thoracic degenerative disc disease Status: Acute (6) Cervical radiculopathy Status: Acute Plan: Assessment: Right-sided cervical pain Right upper extremity radiculopathy Left upper extremity pain Mild cervical degenerative disc disease Cervical facet arthropathy Bilateral upper extremity weakness Thoracic degenerative disc disease Plan: 1. After further evaluation of the patient, reviewing of imaging, and physical examination of the patient, we're not currently planning for acute surgical intervention or further treatment in regards to the patient's cervical spine. She has been experiencing significant right-sided cervical pain with pain radiating up the posterior cervical spine and towards the right shoulder over the past week without injury. She states she is also had ongoing numbness and tingling in the right forearm, right knee finger, right ring finger over the past 6-7 months. She has some right upper extremity weakness due to pain. She has also been experiencing decreased director biostatistics bilaterally that is been ongoing. Imaging does not show evidence of significant spinal canal stenosis or neuroforaminal stenosis. At this time, we are not recommending surgical intervention as there not currently any indications in which surgical intervention would provide significant relief of symptoms. Patient also states she does not want surgical intervention. We are currently recommending she continue with conservative treatment. She does have significant ALLERGIES to multiple narcotic pain medications. At this time, we will plan to have pain management consult on the patient for further evaluation and to discuss possible treatment options. At this time, patient is clear for discharge from orthopedic spine standpoint. Following discharge, patient may follow-up on an as-needed basis. Patient has been discussed with Dr. Zelalem Vizcaino in detail and he agrees with this plan. 2. I will order consultation for pain management 3. Dr. Mcgovern in medicine will continue to follow patient for for treatment and evaluation Time with Patient: Less than 30
[2017-07-24 08:57] LABS: Basophils % (A) 0 %; CH 31.9; CHCM 33.7; Eosinophils # (A) 0.1 k/uL (0-0.7); Eosinophils % (A) 1 %; HCT 42.3 % (34.0-46.0); HDW 2.67; HGB 13.5 gm/dL (11.4-16.0); Luc % (Auto) 1; Lymphocytes # (A) 1.8 k/uL (1.0-4.8); Lymphocytes % (A) 17 %; MCH 30.3 pg (25.0-35.0); MCHC 31.8 g/dL (31.0-37.0); MCV 95.3 fL (80.0-100.0); Mean Platelet Volume 7.6; Monocytes # (A) 0.3 k/uL (0-1.0); Monocytes % (A) 3 %; Neutrophils # (A) 8.3 k/uL (1.3-7.7); Neutrophils % (A) 79 %; RBC 4.44 m/uL (3.80-5.40); RDW 14.1 % (11.5-15.5); WBC 10.6 k/uL (3.8-10.6); WBC (Perox) 10.35
[2017-07-24] MEDS ORDERED: SPIRONOLACTONE 25 MG TAB PO SCH (09:00)
[2017-07-24 09:32] LABS: Ionized Calcium 5.5 mg/dL (4.5-5.3)
[2017-07-24] MEDS: ENOXAPARIN 40 MG/0.4 ML SYRINGE SQ SCH (09:33)
[2017-07-24 10:06] LABS: Hemoglobin A1C 6.5 % (4.2-6.1)
[2017-07-24 10:13] LABS: ALT 26 U/L (9-52); AST 14 U/L (14-36); Alkaline Phosphatase 94 U/L (38-126); Anion Gap 14 mmol/L; Blood Urea Nitrogen 31 mg/dL (7-17); Calcium 10.1 mg/dL (8.4-10.2); Carbon Dioxide 22 mmol/L (22-30); Chloride 104 mmol/L (98-107); Cholesterol 133 mg/dL (<200); Glucose 228 mg/dL (74-99); HDL Cholesterol 44 mg/dL (40-60); Magnesium 1.6 mg/dL (1.6-2.3); Non-African American GFR(MDRD) 57 (>60 ml/min/1.73 sqM); Potassium 4.8 mmol/L (3.5-5.1); Sodium 140 mmol/L (137-145); Total Bilirubin 0.3 mg/dL (0.2-1.3); Total Protein 7.4 g/dL (6.3-8.2)
[2017-07-24] MEDS ORDERED: INSULIN GLARGINE 100 UNIT/ML 10 ML VIAL SQ SCH ×2 (12:00→21:00)
[2017-07-24 12:30] LABS: Glucose,Whole Blood 164 mg/dL (75-99)
[2017-07-24] MEDS: POLYETHYLENE GLYCOL 3350 17 GM POWD.PACK PO SCH (12:40)
[2017-07-24] MEDS: SODIUM CHLORIDE 0.9% 1,000 ML IV SCH (12:43)
--- NOTE | 2017-07-24 14:53 | P.PN ---
Subjective This is dictation in the progress note date of service 07/24/2017. Patient has intractable pain and level of pain is 9-10 over 10 which worsened during the night to 12/10. Patient seen by the orthopedic and that they reviewed the MRI with Dr. Vizcaino and they decided no surgical intervention however they did not help us with how to control the pain with the underlying severe pain with inability to move her head on the cervical area right to left or anteroposterior, meanwhile they consulted the pain clinic team, there is no response from them and I was told now that they only come from Thursday to , today is Thursday and we don't know how to help with the patient, patient is ALLERGIC to all the pain medication. I reviewed the lab today however the lab is not completed, she had elevated ionized calcium we do not have the PTH intact available. Also the other level of laboratory has been send out. On examination: Patient has still intractable pain in the neck with no help and will be consulting neurology for evaluation and treatment with the availability of the pain clinic or anesthesia to help for relieving the pain of the patient. Patient had already the MRI and was indicating still degenerative disc disease advanced. HEENT negative, oropharynx normal with able to swallow and eat. Chest is clear to auscultation and percussion. Heart was regular sinus rhythm. Abdomen is soft positive bowel sounds. Extremities no edema and positive pulses with good perfusion. Neurologically she had numbness in the right upper extremities and the left upper extremities intermittently probably associated with degenerative disc disease of the cervical spine. Assessment. Still patient has intractable pain and we don't to have a pain clinic for anesthesia evaluation and treat. #2 we'll consult neurology to evaluate and treat. Especially the patient has ALLERGY to all pain medication and that Tylenol is not helping. Objective - Vital Signs Vital signs: Vital Signs Temp 98.0 F 07/24/17 14:19 Pulse 63 07/24/17 14:19 Resp 16 07/24/17 14:19 BP 117/56 07/24/17 14:19 Pulse Ox 95 07/24/17 14:19 Intake & Output 07/23/17 07/24/17 07/24/17 18:59 06:59 18:59 Intake Total 400 Balance 400 Weight 72.121 kg 72 kg Intake: Oral 400 Other: # Voids 2 3 - Labs CBC & Chem 7: 07/24/17 08:35 07/24/17 08:35 Labs: Abnormal Lab Results - Last 24 Hours (Table) 07/23/17 07/23/17 07/23/17 Range/Units 11:16 18:35 21:12 Neutrophils # (1.3-7.7) k/uL BUN (7-17) mg/dL Glucose (74-99) mg/dL POC Glucose (mg/dL) 248 H 258 H (75-99) mg/dL Hemoglobin A1c (4.2-6.1) % Ionized Calcium Lainey (4.5-5.3) mg/dL Total Protein (PEP) 8.7 H (6.2-8.2) g/dL 07/24/17 07/24/17 07/24/17 Range/Units 07:16 08:35 08:35 Neutrophils # 8.3 H (1.3-7.7) k/uL BUN 31 H (7-17) mg/dL Glucose 228 H (74-99) mg/dL POC Glucose (mg/dL) 209 H (75-99) mg/dL Hemoglobin A1c (4.2-6.1) % Ionized Calcium Lainey 5.5 H (4.5-5.3) mg/dL Total Protein (PEP) (6.2-8.2) g/dL 07/24/17 07/24/17 Range/Units 08:35 12:23 Neutrophils # (1.3-7.7) k/uL BUN (7-17) mg/dL Glucose (74-99) mg/dL POC Glucose (mg/dL) 164 H (75-99) mg/dL Hemoglobin A1c 6.5 H (4.2-6.1) % Ionized Calcium Lainey (4.5-5.3) mg/dL Total Protein (PEP) (6.2-8.2) g/dL Microbiology - Last 24 Hours (Table) 07/24/17 01:15 Urine Culture - Preliminary Urine,Clean Catch
[2017-07-24 17:17] LABS: Glucose,Whole Blood 159 mg/dL (75-99)
[2017-07-24 21:05] LABS: Glucose,Whole Blood 134 mg/dL (75-99)
[2017-07-24] MEDS: SENNOSIDES-DOCUSATE SODIUM 1 EACH TAB PO SCH (21:20)
[2017-07-24] MEDS: ATORVASTATIN 20 MG TAB PO SCH (21:20)
--- NOTE | 2017-07-24 22:48 | P.CNNES ---
History of Present Illness Consult date: 07/24/17 Requesting physician: Boaz Mcgovern Reason for Consult: neck pain Chief complaint: neck pain, pain management History of Present Illness: Neurology is being requested to consult on a 66-year-old female who is seen at the bedside for evaluation of cervical pain and upper extremity pain and radiculopathy. Patient has been experiencing numbness and tingling on the right forearm and the right ring finger and digit #5 over the past 6-7 months. Over the past couple weeks she's been experiencing significant right-sided cervical pain radiates up the posterior cervical spine and over the head. She has pain that shoots over the right trapezius to the right shoulder she also has been experiencing pain down the left upper extremity. She admits to intermittent bilateral weakness in nurse licensed practical strength. She denies any recent falls, accidents or injuries. She does have a previous history of migraine headache. Patient has had cervical imaging since being admitted. At contact, the patient is supine in bed, resting in no acute distress. Patient is alert and oriented 3. Patient does have a significant medication allergy history as noted in the allergies section of her chart. Patient was significantly indifferent with regard to pain medication. She states that she uses Tylenol on an ongoing basis due to her significant allergies and has "learned to live with it". Review of Systems all systems not noted in HPI or negative Past Medical History Past Medical History: Coronary Artery Disease (CAD), Chest Pain / Angina, CVA/ TIA, Diabetes Mellitus, GERD/Reflux, Hyperlipidemia, Hypertension, Seizure Disorder Additional Past Medical History / Comment(s): HX MIGRAINE, GOUT, CHRONIC SINUSITIS, LAST SEIZURE IN , TIA IN S History of Any Multi-Drug Resistant Organisms: None Reported Past Surgical History: Cholecystectomy, Coronary Bypass/CABG, Heart Catheterization With Stent, Tubal Ligation Additional Past Surgical History / Comment(s): UNSURE HOW MANY STENTS, JULIA CATARACTS, SINUS SX, CABG X3 2009 Past Anesthesia/Blood Transfusion Reactions: No Reported Reaction Date of Last Stent Placement:: UNSURE Past Psychological History: No Psychological Hx Reported Smoking Status: Never smoker Past Alcohol Use History: None Reported Past Drug Use History: None Reported - Past Family History Mother Family Medical History: Coronary Artery Disease (CAD) Medications and Allergies Home Medications Medication Instructions Recorded Confirmed Type Albuterol Inhaler [Ventolin Hfa 2 puff INHALATION RT-Q4H PRN 12/05/14 07/23/17 History Inhaler] Allopurinol [Zyloprim] 300 mg PO DAILY 12/05/14 07/23/17 History Enalapril [Vasotec] 10 mg PO DAILY 12/05/14 07/23/17 History Furosemide [Lasix] 40 mg PO QAM 12/05/14 07/23/17 History Insulin Glargine [Lantus] 24 unit SQ DAILY@1200 12/05/14 07/23/17 History Isosorbide Mononitrate ER [Imdur] 30 mg PO DAILY 12/05/14 07/23/17 History Spironolactone [Aldactone] 25 mg PO DAILY 12/05/14 07/23/17 History Carvedilol 25 mg PO BID #0 12/07/14 07/23/17 Rx Furosemide [Lasix] 20 mg PO HS 07/23/17 07/23/17 History Insulin Aspart [NovoLOG] See Protocol SQ AC-TID 07/23/17 07/23/17 History Magnesium Oxide [Mag-Ox] 400 mg PO DAILY 07/23/17 07/23/17 History Ubidecarenone [Co Q-10] 100 mg PO DAILY 07/23/17 07/23/17 History metFORMIN HCL 1,000 mg PO BID 07/23/17 07/23/17 History Allergies Allergy/AdvReac Type Severity Reaction Status Date / Time aspirin AdvReac Rash/Hives Verified 07/23/17 10:15 butorphanol tartrate AdvReac Rash/Hives Verified 07/23/17 10:15 [From Stadol] codeine AdvReac Rash/Hives Verified 07/23/17 10:15 diazepam [From Valium] AdvReac Rash/Hives Verified 07/23/17 10:15 hydrocodone bitartrate AdvReac Rash/Hives Verified 07/23/17 10:15 [From [place]] hydromorphone [From Dilaudid] AdvReac Unknown Verified 07/23/17 10:15 meperidine HCl [From Demerol] AdvReac Rash/Hives Verified 07/23/17 10:15 morphine AdvReac Rash/Hives Verified 07/23/17 10:15 Penicillins AdvReac Rash/Hives Verified 07/23/17 10:15 procaine HCl [From Novocain] AdvReac Rash/Hives Verified 07/23/17 10:15 sulfamethoxazole AdvReac Rash/Hives Verified 07/23/17 10:15 [From Bactrim] sumatriptan [From Imitrex] AdvReac Rash/Hives Verified 07/23/17 10:15 sumatriptan succinate AdvReac Rash/Hives Verified 07/23/17 10:15 [From Imitrex] tramadol AdvReac Rash/Hives Verified 07/23/17 10:15 trimethoprim [From Bactrim] AdvReac Rash/Hives Verified 07/23/17 10:15 Physical Examination - Vital Signs Vital Signs: Vital Signs Temp Pulse Resp BP Pulse Ox 07/24/17 14:19 98.0 F 63 16 117/56 95 07/24/17 07:07 98 07/24/17 06:46 97.5 F L 61 18 145/83 98 07/23/17 23:00 98.5 F 69 18 118/69 96 Intake and Output 07/24/17 07/24/17 07/24/17 06:59 14:59 22:59 Intake Total 400 Balance 400 Intake: Oral 400 Other: # Voids 2 3 Constitutional: AOx3, cooperative HEENT: NC/AT, no facial asymmetry is seen. Throat: Supple, no masses Respiratory: No increased work of breathing Cardiac: Regular rate and Rhythm GI: non tender, non distended Musculoskeletal: Brief Writer strengths are equal bilaterally 4/5, Lower extremity strengths are equal bilaterally at 5/5. patient has reproducible pain on exam with lateral rotation of the neck, extension greater than flexion, bilateral trapezius pain and cervical paraspinal stiffness. Neurological: CN II-XII in tact, patient was AOx3, speech and language are normal, no unilateralizing weakness, no seizure activity note on physical exam. Sensation was normal. Integementary: no rash, no erythema Psychiatric: mood and affect appropriate Results MRI cervical spine: At C3-4 left facet arthropathy and left neural foraminal narrowing, C4-5 left facet arthropathy and bilateral neural foraminal narrowing greater on the left than the right, C5-6 facet arthropathy: Overall alignment appears to be adequately maintained: No evidence of vertebral body compression fracture, vertebral disc heights appear to be fairly well maintained with mild degenerative disc disease, no definitive soft tissue abnormality seen, no evidence of significant spinal canal stenosis or neural foraminal stenosis throughout the cervical spine. X-ray thoracic spine: No evidence of acute fracture, dislocation of thoracic spine, multilevel degenerative disc disease evidence of multiple sternotomy wires, evidence of mediastinal clips, evidence of surgical clips in the bilateral upper quadrants. X-ray cervical spine: Mild early degenerative disc disease at C4-C7. - Laboratory Findings CBC and BMP: 07/24/17 08:35 07/24/17 08:35 Abnormal Lab Findings: Abnormal Labs 07/23/17 07/23/17 07/23/17 11:16 11:16 11:16 WBC 12.3 H Neutrophils # 10.0 H Carbon Dioxide 21 L BUN 32 H Glucose 147 H POC Glucose (mg/dL) Hemoglobin A1c Calcium 10.7 H Ionized Calcium Lainey AST 38 H Total Protein 9.0 H Total Protein (PEP) Urine Blood Trace H Ur Leukocyte Esterase Moderate H Urine Bacteria Rare H Hyaline Casts 10 H 07/23/17 07/23/17 07/23/17 11:16 18:35 21:12 WBC Neutrophils # Carbon Dioxide BUN Glucose POC Glucose (mg/dL) 248 H 258 H Hemoglobin A1c Calcium Ionized Calcium Lainey AST Total Protein Total Protein (PEP) 8.7 H Urine Blood Ur Leukocyte Esterase Urine Bacteria Hyaline Casts 07/24/17 07/24/17 07/24/17 07:16 08:35 08:35 WBC Neutrophils # 8.3 H Carbon Dioxide BUN 31 H Glucose 228 H POC Glucose (mg/dL) 209 H Hemoglobin A1c Calcium Ionized Calcium Lainey 5.5 H AST Total Protein Total Protein (PEP) Urine Blood Ur Leukocyte Esterase Urine Bacteria Hyaline Casts 07/24/17 07/24/17 07/24/17 08:35 12:23 17:11 WBC Neutrophils # Carbon Dioxide BUN Glucose POC Glucose (mg/dL) 164 H 159 H Hemoglobin A1c 6.5 H Calcium Ionized Calcium Lainey AST Total Protein Total Protein (PEP) Urine Blood Ur Leukocyte Esterase Urine Bacteria Hyaline Casts 07/24/17 21:01 WBC Neutrophils # Carbon Dioxide BUN Glucose POC Glucose (mg/dL) 134 H Hemoglobin A1c Calcium Ionized Calcium Lainey AST Total Protein Total Protein (PEP) Urine Blood Ur Leukocyte Esterase Urine Bacteria Hyaline Casts Assessment and Plan (1) Cervical radiculopathy Status: Acute (2) Cervical spondylosis Status: Acute (3) Cervicalgia Status: Acute (4) Degenerative disc disease, cervical Status: Acute Plan: On physical exam, the patient's pain is primarily cervical facet in etiology based on physical exam findings. Patient does have some secondary etiology of cervical radiculopathy. Given the patient's imaging results, physical exam findings, at this time the patient will be best served a follow-up outpatient for conservative management and interventional procedures. At this time the patient does not require narcotic/opiate pain medication. Patient may benefit from a muscle relaxant and an anti-inflammatory if this does not impact treatment for other comorbidities. Status: Patient is cleared for discharge from a neurological pain management standpoint. Patient should contact our office at discharge for a follow-up appointment to be seen in our office within 10 business days. It is noted that orthopedics also has a pain management consult as well for the same complaints. Patient can follow up with either provider. I discussed the patient's pertinent medical information with Dr. Santizo. He agrees with the plan of care as implemented.
[2017-07-25 07:30] LABS: Glucose,Whole Blood 159 mg/dL (75-99)
[2017-07-25 07:36] VITALS: BP 149/82; PULSE 51; RESP 18; TEMP 97.7
[2017-07-25] MEDS: SENNOSIDES-DOCUSATE SODIUM 1 EACH TAB PO SCH (07:43)
[2017-07-25] MEDS: MAGNESIUM OXIDE 400 MG TAB PO SCH (07:43)
[2017-07-25] MEDS: ALLOPURINOL 300 MG TAB PO SCH (07:43)
[2017-07-25] MEDS: SPIRONOLACTONE 25 MG TAB PO SCH (07:43)
[2017-07-25] MEDS: metFORMIN 500 MG TAB PO SCH (07:43)
[2017-07-25] MEDS: CARVEDILOL 12.5 MG TAB PO SCH (07:43)
[2017-07-25] MEDS: FUROSEMIDE 40 MG TAB PO SCH (07:43)
[2017-07-25] MEDS: ISOSORBIDE MONONITRATE ER 30 MG TAB.ER.24H PO SCH (07:43)
[2017-07-25] MEDS: LISINOPRIL 20 MG TAB PO SCH (07:43)
[2017-07-25] MEDS: ENOXAPARIN 40 MG/0.4 ML SYRINGE SQ SCH (07:44)
[2017-07-25] MEDS: POLYETHYLENE GLYCOL 3350 17 GM POWD.PACK PO SCH (07:44)
[2017-07-25] MEDS: SODIUM CHLORIDE 0.9% 1,000 ML IV SCH (07:44)
[2017-07-25] MEDS: INSULIN LISPRO (humaLOG) 300 UNIT/3 ML VIAL SQ SCH ×2 (07:51→13:28)
[2017-07-25] MEDS: ACETAMINOPHEN TAB 325 MG TAB PO PRN (10:35)
[2017-07-25 12:26] LABS: Glucose,Whole Blood 144 mg/dL (75-99)
[2017-07-25] MEDS ORDERED: CIPROFLOXACIN HCL 250 MG TAB PO SCH (14:15)
[2017-07-25] MEDS ORDERED: LIDOCAINE 5% PATCH TOPICAL SCH (14:15)
--- NOTE | 2017-07-25 15:00 | P.DS ---
Providers Date of admission: 07/23/17 14:13 Attending physician: Baoz Mcgovern Consults: 07/23/17 14:12 Consult Physician Routine Consulting Provider: Ivon Vizcaino Consult Reason/Comments: neckpain Do you want consulting provider notified?: Yes 07/24/17 08:46 Consult to Anesthesia Routine Consulting Provider: Anesthesia,Services Consult Reason/Comments: Cervical pain and right upper extremity radiculopathy 07/24/17 14:56 Consult Physician Routine Consulting Provider: Raya Santizo Consult Reason/Comments: Neck Pain Do you want consulting provider notified?: Yes Primary care physician: Boaz Mcgovern This is a discharge summary by Dr. Froilan Green [facility] date of service 07/25/2019. Final diagnoses: #1 acute cervical neck pain associated with his acute cervicalgia #2 degenerative disc disease of the cervical spine with the discogenic disease and radiculopathy. #3 intractable pain minimally improved. Pain clinic consulted 2 with no response because they don't available by the hospital protocol from Thursday and Thursday they will can only problem Thursday through . Consultation with neurology seen by the PA did not have any recommendation except muscle relaxant without ordering it with actually no benefit of the consultation. Lidocaine patch ordered however her insurance does not gave her that treatment or give her the prescription with the underlying severe pain even outpatient prescription has been not authorized #4 multiple ALLERGY to hold pain medication which is recorded on the chart. #5 Diabetes mellitus type 2 insulin dependent well-controlled. #6 hypertension with hypertensive heart disease #7 coronary artery bypass graft 3 by the history. #8 history of COPD with normal pulse ox and no evidence of acute exacerbation. #9 mild the UTI with this trip to critical again lactic with ALLERGY to penicillin will use temporary Cipro 250 twice a day and recheck as outpatient. #10 tenderness on the cervical spine spine not associated with muscular spasm with no need for for muscle relaxant as patient gets confused with it. #11 hyperproteinemia #12 hypercalcemia #13 mild dehydration. Hospital presentation. Patient presented to the emergency room with severe cervical pain inability to move her neck anteroposterior or side to side could not use any narcotic or muscle relaxant with the previous history of [facility]aud resulted in severe ALLERGIC reaction. Patient received a CTA of the neck in the emergency room and a computed tomography scan of the brain which was both negative patient subsequently admitted to the hospital because of the intractable pain. Hospital course: Patient had severe pain in the neck elevated at 12/10 and we could not give her any medication because of the ALLERGY list and ALLERGIC to all narcotics. We consulted the spine orthopedic Dr. Engle who send his PA to see the patient, patient already because of her severe symptomatic with the underlying discogenic disease we ordered the MRI of the cervical spine and did show severe degenerative disc disease and facet arthropathy. Further help we got from the PA of the orthopedic. He suggestive and called the pain clinic in the hospital for consultation, and unfortunately the heart does not operating on or Thursday or Thursday or Thursday and the patient could not tolerate the pain. Patient was treated with just Tylenol as she is not ALLERGIC to that with the need for the help as the pain is not subsiding and is still 12/10 and 10 over and 06/28. We consulted the neurology records and information manager. Dr. Santizo who send his PA to evaluate the patient, we did consult for pain and helping of the pain over the cervical spine, the evaluation indicating his patient may use muscle relaxant, and cleared, and the reason for the pain that treatment will help for severe pain was not entertained and patient at the same time still in pain. After discussion extensively with the patient, she stated that they still have the pain and no resolution and nobody did anything to help. Patient requested to go home then followed as outpatient. I started her on lidocaine patch 5% once daily, however her insurance does not allow that as outpatient as well. I will order lidocaine patch to be started today on her neck and I will give her a prescription if she can afford the medication versus gel or cream to use it temporary until follow her in the office On discharge physical exam. Her vital sign indicating temperature 97.7, heart rate is ranging between 61 and 51/m nonlabored, respiratory rate between 20 and 18 normal nonlabored, her blood pressure 114/64 to 149-82 mmHg. Pulse ox ranging between 95 and 97 on room air. Her laboratory: Sodium 140 potassium 4.8 chloride 104 carbon dioxide is 22 anion gap 14 BUN 31 creatinine 0.97 and estimated glomerular filtration rate for -[place] more than 60., Her by mouth C glucose was fluctuating and a fasting blood sugar was 147 however patient hemoglobin A1c was normal and insulin has been adjusted. Her calcium on admission 10.7 indicating hypercalcemia etiology unknown Datz was on 07/23/2017 repeated subsequently after the IV fluid calcium level dropped to 10.1 total however ionized calcium was high 5.5 normal range 5.3 very mild. Her AST 38 on admission on 07/23/2017 and on 07/24/2017 and AST is normalized 14. The rest of the liver enzyme is normal. Total protein on 2016 was 9 with hyperproteinemia and repeated was 8.7 still hyper proteinemia her albumin was normal 4.6 subsequently on board 617 her total protein return to 7.4 which is a normal range and albumin was 3.9. Lipid profile was indicating LDL 70 and HDL 44 and triglycerides 93 and albumin 3.9 Admitted lab ordered not available at the time of discharge and dictation as it is send out to the [facility] in [place]. Physical exam on discharge: Head was normocephalic and atraumatic, severe neck pain still present in the average of 06/28 and patient will receive today is lidocaine skin patch applied on the neck. Insurance decline prescription to be given. HEENT was negative. Neck supple however she had tenderness with mild palpation on the cervical spine and upper thoracic not resulted yet. No JVD no thyromegaly no lymphadenopathy trachea midline. Chest clear to auscultation and percussion no wheezes no rhonchi's. Midline of the chest incision from previous thoracotomy for coronary artery bypass graft 3 Heart regular sinus rhythm compensated no dysrhythmia positive murmur. Abdomen: Soft positive bowel sounds no organ enlargement. Extremities no pedal edema and positive pulses and ambulatory. Neurologically she had radiculopathy with cervicalgia and tenderness on the cervical spine she has degenerative osteoarthritis she had a facet arthropathy and localized tenderness on the spine. Assessment: #1 patient stable generally and clinically for discharge home today however the pain in the neck still present and still in the rate of 8-9/10 Plan and discussion: Patient stated i.e. like to go home because there is nothing done and down normal be consulting physician able to help patient as well as she has severe ALLERGY of narcotic. Probably she may need to seen in tertiary center for evaluation and treatment. Patient will receive lidocaine patch and we evaluate as outpatient and she will call Thursday to see how much improvement with the skin patch and eventually her insurance able to give to her these treatment if itself. Patient Condition at Discharge: Fair Plan - Discharge Summary New Discharge Prescriptions: New Acetaminophen Tab [Tylenol] 650 mg PO Q4HR PRN tab PRN Reason: Fever and/ or Mild Pain Atorvastatin [Lipitor] 20 mg PO HS tab Ciprofloxacin HCl [Cipro] 250 mg PO BID #10 tab Insulin Glargine [Lantus] 30 unit SQ HS vial Polyethylene Glycol 3350 [Miralax] 17 gm PO DAILY pack Sennosides-Docusate Sodium [Senokot-S] 1 each PO BID tab Spironolactone [Aldactone] 12.5 mg PO DAILY tab Continue Isosorbide Mononitrate ER [Imdur] 30 mg PO DAILY Furosemide [Lasix] 40 mg PO QAM Enalapril [Vasotec] 10 mg PO DAILY Allopurinol [Zyloprim] 300 mg PO DAILY Albuterol Inhaler [Ventolin Hfa Inhaler] 2 puff INHALATION RT-Q4H PRN PRN Reason: Shortness Of Breath Carvedilol 25 mg PO BID #0 Ubidecarenone [Co Q-10] 100 mg PO DAILY Magnesium Oxide [Mag-Ox] 400 mg PO DAILY metFORMIN HCL 1,000 mg PO BID Insulin Aspart [NovoLOG] See Protocol SQ AC-TID Discontinued Spironolactone [Aldactone] 25 mg PO DAILY Insulin Glargine [Lantus] 24 unit SQ DAILY@1200 Furosemide [Lasix] 20 mg PO HS Discharge Medication List Albuterol Inhaler [Ventolin Hfa Inhaler] 2 puff INHALATION RT-Q4H PRN 12/05/14 [ History] Allopurinol [Zyloprim] 300 mg PO DAILY 12/05/14 [History] Enalapril [Vasotec] 10 mg PO DAILY 12/05/14 [History] Furosemide [Lasix] 40 mg PO QAM 12/05/14 [History] Isosorbide Mononitrate ER [Imdur] 30 mg PO DAILY 12/05/14 [History] Carvedilol 25 mg PO BID #0 12/07/14 [Rx] Insulin Aspart [NovoLOG] See Protocol SQ AC-TID 07/23/17 [History] Magnesium Oxide [Mag-Ox] 400 mg PO DAILY 07/23/17 [History] Ubidecarenone [Co Q-10] 100 mg PO DAILY 07/23/17 [History] metFORMIN HCL 1,000 mg PO BID 07/23/17 [History] Acetaminophen Tab [Tylenol] 650 mg PO Q4HR PRN tab 07/25/17 [Rx] Atorvastatin [Lipitor] 20 mg PO HS tab 07/25/17 [Rx] Ciprofloxacin HCl [Cipro] 250 mg PO BID #10 tab 07/25/17 [Rx] Insulin Glargine [Lantus] 30 unit SQ HS vial 07/25/17 [Rx] Polyethylene Glycol 3350 [Miralax] 17 gm PO DAILY pack 07/25/17 [Rx] Sennosides-Docusate Sodium [Senokot-S] 1 each PO BID tab 07/25/17 [Rx] Spironolactone [Aldactone] 12.5 mg PO DAILY tab 07/25/17 [Rx] Follow up Appointment(s)/Referral(s): Cedric Mathews PAC [PHYSICIAN CAMERA TECHNICIAN] - As Needed (Patient may follow-up with Cedric Mathews PA-C or Dr. Zelalem Vizcaino at [facility] on an as needed basis following discharge. ) Boaz Mcgovern MD [Primary Care Provider] - 1-2 days
== END 2017-07-25 16:06 | disposition home or self-care (01) ==
LOC: EC 10:01 → 4MS4W 14:13
PROVIDERS: ADMIT Internal Medicine; ATTEND Internal Medicine
DX: M50.10 Cervical disc disorder with radiculopathy, unspecified cervical region (principal); E86.0 Dehydration; N39.0 Urinary tract infection, site not specified; M51.34 Other intervertebral disc degeneration, thoracic region; M47.22 Other spondylosis with radiculopathy, cervical region; G89.29 Other chronic pain; K21.9 Gastro-esophageal reflux disease without esophagitis; I25.10 Atherosclerotic heart disease of native coronary artery without angina pectoris; G40.909 Epilepsy, unspecified, not intractable, without status epilepticus; E78.5 Hyperlipidemia, unspecified; E11.9 Type 2 diabetes mellitus without complications; M10.9 Gout, unspecified; J32.9 Chronic sinusitis, unspecified; G43.909 Migraine, unspecified, not intractable, without status migrainosus; I11.9 Hypertensive heart disease without heart failure; E83.52 Hypercalcemia; J44.9 Chronic obstructive pulmonary disease, unspecified; E88.09 Other disorders of plasma-protein metabolism, not elsewhere classified; Z91.81 History of falling; Z88.6 Allergy status to analgesic agent; Z79.4 Long term (current) use of insulin; Z79.899 Other long term (current) drug therapy; Z88.4 Allergy status to anesthetic agent; Z88.5 Allergy status to narcotic agent; Z88.0 Allergy status to penicillin; Z88.2 Allergy status to sulfonamides; Z88.8 Allergy status to other drugs, medicaments and biological substances; Z86.73 Personal history of transient ischemic attack (TIA), and cerebral infarction without residual deficits; Z95.1 Presence of aortocoronary bypass graft; Z95.5 Presence of coronary angioplasty implant and graft; Z82.49 Family history of ischemic heart disease and other diseases of the circulatory system; Z79.02 Long term (current) use of antithrombotics/antiplatelets
CPT/HCPCS: 96361 ×3; 96372 ×2; 96374; 96375; 99285; 36415; 82652; 82310; 80053 ×2; 80061; 82330; 83036; 82550; 82553; 83735 ×2; 84100; 84484; 85025 ×2; 85610; 85730; 81001; 84165; 82306; 83970; 87086; 86334; 86335; 72072; 72050; 70496; 70450; 70498; 72141; G0378 ×3; J2360; Q9967; J2405; J1650 ×2; J0131

== ENCOUNTER → 2018-06-26 | Outpatient (CLI) | payer MEDICARE, OTHER ==
[2018-06-26 10:09] LABS: Albumin 4.3 g/dL (3.5-5.0); Calcium 10.2 mg/dL (8.4-10.2); Potassium 4.5 mmol/L (3.5-5.1); Total Bilirubin 0.6 mg/dL (0.2-1.3); Total Protein 7.6 g/dL (6.3-8.2); Uric Acid 4.3 mg/dL (3.7-7.4)
[2018-06-26 10:24] LABS: T4, Free (Free Thyroxine) 0.82 ng/dL (0.78-2.19)
[2018-06-26 10:26] LABS: Basophils % (A) 0 %; Eosinophils # (A) 0.2 k/uL (0-0.7); Eosinophils % (A) 3 %; HCT 41.9 % (34.0-46.0); HGB 13.3 gm/dL (11.4-16.0); Lymphocytes # (A) 2.6 k/uL (1.0-4.8); Lymphocytes % (A) 37 %; MCH 29.7 pg (25.0-35.0); MCHC 31.8 g/dL (31.0-37.0); MCV 93.4 fL (80.0-100.0); Mean Platelet Volume 6.6; Monocytes # (A) 0.3 k/uL (0-1.0); Monocytes % (A) 4 %; Neutrophils # (A) 3.8 k/uL (1.3-7.7); Neutrophils % (A) 54 %; Platelet Count 272 k/uL (150-450); RBC 4.48 m/uL (3.80-5.40); RDW 13.6 % (11.5-15.5); WBC 7.1 k/uL (3.8-10.6)
[2018-06-26 18:36] LABS: Hemoglobin A1C 6.8 % (4.0-6.0)
== END | disposition home or self-care (01) ==
LOC: LABWHC1 09:34
PROVIDERS: ATTEND Pediatrics Neurodevelopmental Disabilities
DX: G31.84 Mild cognitive impairment of uncertain or unknown etiology (principal)
CPT/HCPCS: 36415; 80053; 80061; 82607; 83036; 84439; 84443; 84550; 85025

== ENCOUNTER → 2018-08-13 | Outpatient (CLI) | payer MEDICARE, OTHER ==
[2018-08-13 10:18] LABS: Ionized Calcium 5.6 mg/dL (4.5-5.3)
[2018-08-13 19:31] LABS: Albumin 4.3 g/dL (3.80-4.90); Albumin/Globulin Ratio 1.79 (1.20-2.10); Anion Gap 7.9 mmol/L (4.00-12.00); Carbon Dioxide 23.1 mmol/L (21.6-31.8); Globulin 2.4 g/dL (2.1-3.7); Magnesium 1.6 mg/dL (1.5-2.4); Phosphorus 3.7 mg/dL (2.4-5.1); Potassium 4.1 mmol/L (3.5-5.5); Total Bilirubin 0.6 mg/dL (0.3-1.2); Total Protein 6.7 g/dL (6.2-8.2)
== END ==
LOC: LABWHC1 09:19
PROVIDERS: ATTEND Internal Medicine
DX: E83.52 Hypercalcemia (principal); E11.22 Type 2 diabetes mellitus with diabetic chronic kidney disease; N18.3 Chronic kidney disease, stage 3 (moderate)
CPT/HCPCS: 36415; 80053; 82330; 83735; 83970; 84100; 85652

== ENCOUNTER → 2019-08-10 | Outpatient (CLI) | payer MEDICARE, OTHER ==
--- NOTE | 2019-08-10 14:00 | MR ---
EXAMINATION TYPE: MR brain/cspine wo/w DATE OF EXAM: 08/10/2019 COMPARISON: Prior brain MRA drain dated 01/23/2010, prior cervical spine dated 07/23/2017, head CT 2016 HISTORY: dizziness/memory loss, both sided numbness TECHNIQUE: Multiplanar, multisequence images of the brain and cervical spine is performed without and with IV co ntrast, utilizing 7 mL intravenous Gadavist . FINDINGS: Diffusion weighted images demonstrate no evidence of a recent infarct or other diffusion ab normality. There is no extra-axial fluid collection and there are scattered periventricular, perical losal hyperintensities on inversion recovery T2-weighted sequences. Approximately 10 lesions are pres ent, largest on axial image 18 measures 8 mm adjacent to the posterior horn of the left lateral ventr icle and there is some increased signal also within the orion. The ventricular system and cisternal sp aces are normal in size and appearance. The brain volume is age appropriate. Midline structures demonstrate normal morphology. The craniocervical junction appears within normal limits. Post contrast images demonstrate no abnormal enhancement. The dural venous sinuses appear pa tent. The visualized sinuses are clear and the globes are intact. IMPRESSION: Nonspecific white matter demyelination may be due to chronic small vessel ischemia. Cervical spine MRI: Cervical vertebral bodies show preserved height, alignment, and bone marrow signa l. There is no evident spinal stenosis, no sizable disc herniation. Small posterior disc bulge at C4- 5 causes minimal anterior mass effect on the thecal sac. There is multilevel facet arthropathy, there is some uncovertebral joint hypertrophy causing some left-sided. The right foraminal encroachment at C4-5. Foraminal encroachment also present left greater than right at C3-4 and likely on the left at C6-7. Cervical cord signal is maintained. Disc spaces are uniform. No abnormal enhancement following contrast administration. At the spinous process of T1 posteriorly there is some intermediate signal on T1, mild increased sign al T2, some enhancement possibly due to some local trauma or inflammatory change. IMPRESSION: Mild degenerative disc disease, facet arthropathy, foraminal encroachment as described. N o sizable disc herniation. Bodies of the spinous process at T1 as described.
== END | disposition home or self-care (01) ==
LOC: RADMRIMAIN 08:39
PROVIDERS: ATTEND Psychiatry & Neurology Neurology
DX: G37.8 Other specified demyelinating diseases of central nervous system (principal); M50.10 Cervical disc disorder with radiculopathy, unspecified cervical region; M46.92 Unspecified inflammatory spondylopathy, cervical region
CPT/HCPCS: 70553; 72156; A9585

== ENCOUNTER → 2019-08-18 | Outpatient (CLI) | payer MEDICARE, OTHER ==
[2019-08-18 10:41] LABS: Basophils # (A) 0.1 k/uL (0-0.2); Basophils % (A) 1 %; Eosinophils # (A) 0.1 k/uL (0-0.7); Eosinophils % (A) 1 %; HCT 42.8 % (34.0-46.0); HGB 14.2 gm/dL (11.4-16.0); Lymphocytes # (A) 2.5 k/uL (1.0-4.8); Lymphocytes % (A) 31 %; MCH 30.2 pg (25.0-35.0); MCHC 33.3 g/dL (31.0-37.0); MCV 90.7 fL (80.0-100.0); Mean Platelet Volume 6.6; Monocytes # (A) 0.4 k/uL (0-1.0); Monocytes % (A) 4 %; Neutrophils % (A) 61 %; Platelet Count 320 k/uL (150-450); RBC 4.72 m/uL (3.80-5.40); RDW 13.5 % (11.5-15.5); WBC 8.2 k/uL (3.8-10.6)
[2019-08-18 12:50] LABS: Erythrocyte Sedimentation Rate 12 mm/hr (0-20)
[2019-08-18 16:50] LABS: Protein, Total 7.2 g/dL (6.2-8.2)
[2019-08-18 17:37] LABS: Anti-DNA, DS unit <1.0 IU/mL; Anti-Smith Ab Interp NEGATIVE (NEGATIVE); Centromere Antibody <0.2 AI; Centromere Antibody Interp NEGATIVE (NEGATIVE); DNA Double-Stranded NEGATIVE (NEGATIVE); Scleroderma SC-70 Ab <0.2 AI
[2019-08-18 17:38] LABS: Cyclic Citrull Pep IgG Unit <0.5 U/mL; Cyclic Citrullinated Pep IgG NEGATIVE (NEGATIVE)
[2019-08-18 17:47] LABS: ALT 25 U/L (8-44); AST 27 U/L (13-35); African American GFR (CKD) 65.6 (60.0-200.0); Alkaline Phosphatase 86 U/L (41-126); C Reactive Protein <0.4 mg/dL (0.0-0.8); Calcium 10.6 mg/dL (8.7-10.3); Carbon Dioxide 24.4 mmol/L (21.6-31.8); Chloride 103 mmol/L (96-109); Creatine Kinase 164 U/L (26-186); Globulin 2.4 g/dL (1.6-3.3); Glucose 129 mg/dL (70-110); Non-African American GFR(CKD) 56.6 (60.0-200.0); Potassium 4.7 mmol/L (3.5-5.5); Sodium 138 mmol/L (135-145); Total Bilirubin 0.6 mg/dL (0.3-1.2); Total Protein 7.2 g/dL (6.2-8.2); Uric Acid 4.1 mg/dL (2.9-7.7)
[2019-08-18 19:13] LABS: Hepatitis B Surface Antigen Non-Reactive (Non-Reactive); Hepatitis C IgG Antibody Non-Reactive (Non-Reactive)
[2019-08-19 08:41] LABS: Angiotensin-1 Converting Enz. 25 U/L (8-52)
[2019-08-19 09:41] LABS: Free Kappa Lt Chain Qnt, Serum 2.52 mg/dL (0.33-1.94)
[2019-08-19 11:56] LABS: HLA B27 NEGATIVE
[2019-08-19 11:59] LABS: Histone Antibody 0.7 UNITS (<1.0)
[2019-08-19 13:52] LABS: Albumin 4.15 g/dL (3.80-4.90); Gamma Globulin 1.24 g/dL (0.70-1.50)
[2019-08-19 14:45] LABS: C-ANCA <1:20 Titer (<1:20)
[2019-08-20 11:47] LABS: Aldolase 3.2 U/L (1.2-7.6)
== END | disposition home or self-care (01) ==
LOC: LABWHC1 09:12
PROVIDERS: ATTEND Internal Medicine Rheumatology
DX: R76.8 Other specified abnormal immunological findings in serum (principal)
CPT/HCPCS: 36415; 80053; 82085; 82164; 82306; 82550; 83516; 83520; 83883; 84165; 84439; 84443; 84550; 85025; 85652; 86038; 86140; 86160; 86162; 86200; 86225; 86235; 86255; 86334; 86803; 86812; 87340

== ENCOUNTER 2020-01-06 14:21 | Emergency (ER) | payer MEDICARE, OTHER ==
--- NOTE | 2020-01-06 15:15 | ED ---
General Adult HPI - General Source: patient, RN notes reviewed, old records reviewed Mode of arrival: ambulatory Limitations: no limitations <Saturnino Santamaria - Last Filed: 01/06/20 16:42> <Remington Griffiths - Last Filed: 01/06/20 19:34> - General Chief complaint: Headache Stated complaint: head injury/headache Time Seen by Provider: 01/06/20 14:32 - History of Present Illness Initial comments: 69-year-old female patient on Plavix secondary to CABG presents to ED for headache. Patient reports that her days ago she had a relatively heavy plastic air freshener which was having a fall on her right forehead region. Patient denies any loss of consciousness. Denies any fall to the ground. Patient persistent since she's had a persistent right-sided frontal and posterior occipital headache. Denies any new onset changes in vision. Denies any weakness of lower extremities. Denies any other complaints. Systemic: Pt denies fatigue, fever/chills, rash. Pt denies weakness, night sweats, weight loss. Neuro: Pt denies visual disturbances, syncope or pre-syncope. HEENT: Pt denies ocular discharge or irritation, otalgia, rhinorrhea, pharyngitis or notable lymphadenopathy. Cardiopulmonary: Pt denies chest pain, SOB, heart palpitations, dyspnea on exertion. Abdominal/GI: Pt denies abdominal pain, n/v/d. : Pt denies dysuria, burning w/ urination, frequency/urgency. Denies new onset urinary or bowel incontinence. MSK: Pt denies myalgia, loss of strength or function in extremities. Neuro: Pt denies new onset weakness, paresthesias. (Saturnino Santamaria) - Related Data Home Medications Medication Instructions Recorded Confirmed Albuterol Inhaler [Ventolin Hfa 2 puff INHALATION RT-Q4H PRN 12/05/14 07/23/17 Inhaler] Allopurinol [Zyloprim] 300 mg PO DAILY 12/05/14 07/23/17 Enalapril [Vasotec] 10 mg PO DAILY 12/05/14 07/23/17 Furosemide [Lasix] 40 mg PO QAM 12/05/14 07/23/17 Isosorbide Mononitrate ER [Imdur] 30 mg PO DAILY 12/05/14 07/23/17 INSULIN ASPART (NovoLOG) [NovoLOG See Protocol SQ AC-TID 07/23/17 07/23/17 (formulary)] Magnesium Oxide [Mag-Ox] 400 mg PO DAILY 07/23/17 07/23/17 Ubidecarenone [Co Q-10] 100 mg PO DAILY 07/23/17 07/23/17 metFORMIN HCL 1,000 mg PO BID 07/23/17 07/23/17 Previous Rx's Medication Instructions Recorded Carvedilol 25 mg PO BID #0 12/07/14 Acetaminophen Tab [Tylenol] 650 mg PO Q4HR PRN tab 07/25/17 Atorvastatin [Lipitor] 20 mg PO HS tab 07/25/17 Ciprofloxacin HCl [Cipro] 250 mg PO BID #10 tab 07/25/17 Insulin Glargine [Lantus] 30 unit SQ HS vial 07/25/17 Polyethylene Glycol 3350 [Miralax] 17 gm PO DAILY pack 07/25/17 Sennosides-Docusate Sodium 1 each PO BID tab 07/25/17 [Senokot-S] Spironolactone [Aldactone] 12.5 mg PO DAILY tab 07/25/17 Allergies Allergy/AdvReac Type Severity Reaction Status Date / Time aspirin AdvReac Rash/Hives Verified 01/06/20 14:29 butorphanol tartrate AdvReac Rash/Hives Verified 01/06/20 14:29 [From Stadol] codeine AdvReac Rash/Hives Verified 01/06/20 14:29 diazepam [From Valium] AdvReac Rash/Hives Verified 01/06/20 14:29 hydrocodone bitartrate AdvReac Rash/Hives Verified 01/06/20 14:29 [From Crucible] hydromorphone [From Dilaudid] AdvReac Unknown Verified 01/06/20 14:29 meperidine HCl [From Demerol] AdvReac Rash/Hives Verified 01/06/20 14:29 morphine AdvReac Rash/Hives Verified 01/06/20 14:29 Penicillins AdvReac Rash/Hives Verified 01/06/20 14:29 procaine HCl [From Novocain] AdvReac Rash/Hives Verified 01/06/20 14:29 sulfamethoxazole AdvReac Rash/Hives Verified 01/06/20 14:29 [From Bactrim] sumatriptan [From Imitrex] AdvReac Rash/Hives Verified 01/06/20 14:29 sumatriptan succinate AdvReac Rash/Hives Verified 01/06/20 14:29 [From Imitrex] tramadol AdvReac Rash/Hives Verified 01/06/20 14:29 trimethoprim [From Bactrim] AdvReac Rash/Hives Verified 01/06/20 14:29 Review of Systems ROS Other: All systems not noted in ROS Statement are negative. <Saturnino Santamaria - Last Filed: 01/06/20 16:42> ROS Other: All systems not noted in ROS Statement are negative. <Remington Griffiths - Last Filed: 01/06/20 19:34> ROS Statement: Those systems with pertinent positive or pertinent negative responses have been documented in the HPI. Past Medical History Past Medical History: Coronary Artery Disease (CAD), Chest Pain / Angina, CVA/TIA, Diabetes Mellitus, GERD/Reflux, Hyperlipidemia, Hypertension, Seizure Disorder Additional Past Medical History / Comment(s): HX MIGRAINE, GOUT, CHRONIC SINUSITIS, LAST SEIZURE IN S, TIA IN 1970S History of Any Multi-Drug Resistant Organisms: None Reported Past Surgical History: Cholecystectomy, Coronary Bypass/CABG, Heart Catheterization With Stent, Tubal Ligation Additional Past Surgical History / Comment(s): UNSURE HOW MANY STENTS, JULIA CATARACTS, SINUS SX, CABG X3 2009 Past Anesthesia/Blood Transfusion Reactions: No Reported Reaction Date of Last Stent Placement:: UNSURE Past Psychological History: No Psychological Hx Reported Smoking Status: Never smoker Past Alcohol Use History: None Reported Past Drug Use History: None Reported - Past Family History Mother Family Medical History: Coronary Artery Disease (CAD) <Saturnino Santamaria - Last Filed: 01/06/20 16:42> General Exam Limitations: no limitations <Saturnino Santamaria - Last Filed: 01/06/20 16:42> - General Exam Comments Initial Comments: Constitutional: NAD, AOX3, Pt has pleasant affect. HEENT: NC/AT, trachea midline, neck supple, no lymphadenopathy. Posterior pharynx non erythematous, without exudates. External ears appear normal, without discharge. Mucous membranes moist. Eyes PERRLA, EOM intact. There is no scleral icterus. No pallor noted. Cardiopulmonary: RRR, no murmurs, rubs or gallops, no JVD noted. Lungs CTAB in anterior and posterior lentz. No peripheral edema. Abdominal exam: Abdomen soft and non-distended. Abdomen non-tender to palpation in all 4 quadrants. Bowel sounds active in LLQ. No hepatosplenomegaly. No ecchymosis Neuro: CN II-XII intact. No nuchal rigidity. No raccon eyes, no catalan sign, no hemotympanum. No cervical spinal tenderness. NIH 0. MSK: No posterior calf tenderness bilaterally, homans sign negative bilaterally. Posterior tibialis and radial pulse +2 bilaterally. Sensation intact in upper and lower extremities. Full active ROM in upper and lower extremities, 5/5 stregnth. (Saturnino Santamaria) Course <Remington Griffiths - Last Filed: 01/06/20 19:34> Vital Signs 01/06/20 01/06/20 14:26 16:52 Temperature 97.4 F L 98.2 F Pulse Rate 63 68 Respiratory 20 16 Rate Blood Pressure 148/80 132/83 O2 Sat by Pulse 100 99 Oximetry - Reevaluation(s) Reevaluation #1: 01/06/20 19:33 PA supervision: I proceeded evaluate this case patient did get struck in the forehead with an air freshener bottle. No loss of consciousness no nausea vomiting persists pain however. She did receive a CAT scan which was negative for evidence of dense of acute findings. I do agree with the assessment and plan. (Remington Griffiths) Medical Decision Making <Saturnino Santamaria - Last Filed: 01/06/20 16:42> - Medical Decision Making 69-year-old female patient on Plavix secondary to CABG presents to ED for headache. Patient reports that her days ago she had a relatively heavy plastic air freshener which was having a fall on her right forehead region. Patient denies any loss of consciousness. Denies any fall to the ground. Patient persistent since she's had a persistent right-sided frontal and posterior occipital headache. Denies any new onset changes in vision. Denies any weakness of lower extremities. Denies any other complaints. Patient will tender stable, afebrile. Physical exam did not display acute pathology. Neurologic exam is intact. CT brain did not display any acute process. Patient was administered Reglan Tylenol and Benadryl emergency department she states the headache has resolved. Patient be discharged for follow-up with primary care katja thompsonerasmo will return to ER if condition worsens. Case discussed with Dr. Griffiths. (Saturnino Santamaria) Disposition Is patient prescribed a controlled substance at d/c from ED?: No <Saturnino Santamaria - Last Filed: 01/06/20 16:42> <Remington Griffiths - Last Filed: 01/06/20 19:34> Clinical Impression: Headache Disposition: HOME SELF-CARE Condition: Stable Instructions (If sedation given, give patient instructions): Acute Headache (ED) Additional Instructions: Follow-up with primary care provider tomorrow. Return to ER if condition worsens in any way. Referrals: Boaz Mcgovern MD [Primary Care Provider] - 1-2 days
--- NOTE | 2020-01-06 15:39 | CT ---
EXAMINATION TYPE: CT brain wo con DATE OF EXAM: 01/06/2020 HISTORY: CALDERON after head injury CT DLP: 1027.4 mGycm. Automated Exposure Control for Dose Reduction was Utilized. TECHNIQUE: CT scan of the head is performed without contrast. COMPARISON: CT head July 23, 2017. FINDINGS: There is no acute intracranial hemorrhage or midline shift identified. There is diffuse v entricular and sulcal prominence consistent with diffuse age-related cerebral atrophy. There is low- attenuation in the periventricular white matter consistent with chronic small vessel ischemic change. The globes are intact and the visualized sinuses are clear. The calvarium is intact. IMPRESSION: No acute intracranial hemorrhage or midline shift. There is mild diffuse age-related ce rebral atrophy and chronic small vessel ischemic change redemonstrated. No significant change from p rior.
[2020-01-06] MEDS ORDERED: ACETAMINOPHEN TAB 325 MG TAB PO STA (15:41)
[2020-01-06] MEDS ORDERED: diphenhydrAMINE 25 MG CAP PO STA (15:41)
[2020-01-06] MEDS ORDERED: METOCLOPRAMIDE 5 MG TAB PO STA (15:41)
[2020-01-06 16:53] VITALS: BP 132/83; PULSE 68; RESP 16; TEMP 98.2
== END 2020-01-06 16:53 | disposition home or self-care (01) ==
LOC: EC 14:21
DX: R51 Headache (principal); I25.119 Atherosclerotic heart disease of native coronary artery with unspecified angina pectoris; E11.9 Type 2 diabetes mellitus without complications; E78.5 Hyperlipidemia, unspecified; I10 Essential (primary) hypertension; G40.909 Epilepsy, unspecified, not intractable, without status epilepticus; K21.9 Gastro-esophageal reflux disease without esophagitis; Z79.4 Long term (current) use of insulin; Z79.02 Long term (current) use of antithrombotics/antiplatelets; Z79.899 Other long term (current) drug therapy; Z88.6 Allergy status to analgesic agent; Z88.5 Allergy status to narcotic agent; Z88.8 Allergy status to other drugs, medicaments and biological substances; Z88.0 Allergy status to penicillin; Z88.1 Allergy status to other antibiotic agents; Z88.2 Allergy status to sulfonamides; Z95.1 Presence of aortocoronary bypass graft; Z95.5 Presence of coronary angioplasty implant and graft; Z86.73 Personal history of transient ischemic attack (TIA), and cerebral infarction without residual deficits
CPT/HCPCS: 70450; 99284

== ENCOUNTER → 2020-08-19 | Outpatient (CLI) | payer MEDICARE, OTHER ==
--- NOTE | 2020-08-19 14:17 | XR ---
EXAMINATION TYPE: XR bone survey complete DATE OF EXAM: 08/19/2020 COMPARISON: None HISTORY: Monoclonal gammopathy TECHNIQUE: Imaging is performed throughout the axial and appendicular skeleton FINDINGS: Chest x-ray: Fractured sternotomy wires are noted. Heart size is normal. Lungs are clear. No suspicio us osseous abnormality is evident within the [id number]. Cervical spine: 2 views, Left carotid artery calcifications present. Cervical spine is visualized is normal. Skull: 2 views appear normal. No suspicious lytic lesions are evident. The patient is a dentulous. Humeri: Very subtle moth-eaten appearance of the proximal diaphyseal left humerus is not excluded. Le ft humerus otherwise appears normal. The right humerus appears normal. Thoracic spine: Degenerative changes are present. Pedicles appear intact. 12 thoracic type vertebral bodies are present. Some scoliosis within the mid thoracic spine. Spondylosis within the mid thoracic spine. Lumbar spine: There 5 lumbar-type vertebral bodies. Pedicles are intact. Disc height and vertebral chelo dy heights appear preserved. Pelvis: Femoral heads articulate with the acetabulum. Joint space narrowing is present. Symphysis pub is and sacroiliac joints are normal. No suspicious lytic lesions. Bilateral femurs: No suspicious lytic lesions are evident. IMPRESSION: 1. Very subtle moth-eaten appearance of the proximal diaphyseal left humerus is not excluded. 2. Overall, remainder of the survey appears negative for suspicious lytic lesions.
== END | disposition home or self-care (01) ==
LOC: RADFLMAIN 12:53
PROVIDERS: ATTEND Internal Medicine Hematology & Oncology
DX: R93.7 Abnormal findings on diagnostic imaging of other parts of musculoskeletal system (principal); D47.2 Monoclonal gammopathy; M10.9 Gout, unspecified; E11.9 Type 2 diabetes mellitus without complications
CPT/HCPCS: 77075

== ENCOUNTER → 2020-08-23 | Outpatient (CLI) | payer MEDICARE, OTHER ==
[2020-08-24 11:13] LABS: Free Kappa Lt Chain Qnt, Serum 2.79 mg/dL (0.33-1.94)
[2020-08-24 14:05] LABS: Albumin 3.95 g/dL (3.80-4.90); Gamma Globulin 1.29 g/dL (0.70-1.50)
[2020-08-24 15:04] LABS: Free Kappa Lt Chain Qnt, Urine 1.74 mg/dL (0.140-2.420)
== END | disposition home or self-care (01) ==
LOC: LABWHC1 09:14
PROVIDERS: ATTEND Internal Medicine
DX: D47.2 Monoclonal gammopathy (principal)
CPT/HCPCS: 36415; 83883; 84156; 84165; 86334; 86335

== ENCOUNTER 2024-06-05 09:38 | Emergency (ER) | payer MEDICARE, OTHER ==
--- NOTE | 2024-06-27 15:55 | CT ---
Patient Susan Roca ID [id number] Order # EXAMINATION TYPE: CT brain wo con DATE OF EXAM: 06/05/2024 COMPARISON: No comparison available on downtime PACS. INDICATION: Headache and hypertension DLP: 1132.4 mGycm, Automated exposure control for dose reduction was used. CONTRAST: None CT of the brain is performed utilizing 3 mm thick sections through the posterior fossa and 3 mm thick sections through the remaining calvarium. Study is performed within 24 hours of arrival to the hosp ital. No abnormal hyperdensity is present to suggest an acute intracranial hemorrhage. No mass lesion is evident. No acute infarcts are evident. Subtle left centrum semiovale white matter hypodensity may be present, most likely on the basis of chronic white matter ischemic changes. Ventricles and sulci are appropriate for the patient age. Paranasal sinuses and mastoid air cells within the [id number] are clear. IMPRESSION: 1. No acute intracranial process. Follow up MRI can be performed as clinically indicated. 2. Minimal left centrum semiovale chronic appearing white matter ischemic-type changes.
== END 2024-06-05 11:05 | disposition home or self-care (01) ==
LOC: EC 09:38 → EDSTATUS 11:57
DX: I10 Essential (primary) hypertension (principal)
CPT/HCPCS: 70450; 99284

== ENCOUNTER 2024-06-15 12:04 | Emergency (ER) | payer MEDICARE, OTHER ==
--- NOTE | 2024-06-15 13:49 | ED ---
Abdominal Pain HPI - General Source: patient, RN notes reviewed Mode of arrival: ambulatory Limitations: no limitations <Yamilex Baeza - Last Filed: 06/15/24 13:48> - General Source: patient, RN notes reviewed, old records reviewed <Fito Weems - Last Filed: 06/15/24 17:48> - General Chief Complaint: Abdominal Pain Stated Complaint: R side pain Time Seen by Provider: 06/15/24 13:48 - History of Present Illness Initial Comments: Note: 73-year-old female presented to the ER with a chief complaint of right flank pain. Pain started last night and has worsened today. Known history of diabetes. Denies any fevers, chills, constipation/diarrhea, urinary complaints. Patient has taken [id number] Tylenol without relief. No known injuries or traumas. (Yamilex Baeza) 73-year-old female who presents emergency department complaining of right sided mid back pain. Worse with movements. Mostly the paraspinal muscles of the upper lumbar spine. States it occasionally will go towards her flank but for the most part stays right in the paraspinal muscles. Worse with movement. Presents for further evaluation at this time. Denies any dysuria or hematuria. Denies any abdominal pain, nausea, vomiting. Denies diarrhea or constipation. Denies chest pain or shortness of breath. No other acute complaints at this time. Presents for further evaluation. No obvious trauma. History of diabetes.Originally seen as a quick note. (Fito Weems) - Related Data Home Medications Medication Instructions Recorded Confirmed Albuterol Inhaler [Ventolin Hfa 2 puff INHALATION RT-Q4H PRN 12/05/14 07/23/17 Inhaler] Enalapril [Vasotec] 10 mg PO DAILY 12/05/14 07/23/17 Furosemide [Lasix] 40 mg PO QAM 12/05/14 07/23/17 Isosorbide Mononitrate ER [Imdur] 30 mg PO DAILY 12/05/14 07/23/17 allopurinoL [Zyloprim] 300 mg PO DAILY 12/05/14 07/23/17 INSULIN ASPART (NovoLOG) [NovoLOG See Protocol SQ AC-TID 07/23/17 07/23/17 (formulary)] Magnesium Oxide [Mag-Ox] 400 mg PO DAILY 07/23/17 07/23/17 Ubidecarenone [Co Q-10] 100 mg PO DAILY 07/23/17 07/23/17 metFORMIN HCL [Glucophage] 1,000 mg PO BID 07/23/17 07/23/17 Previous Rx's Medication Instructions Recorded Carvedilol 25 mg PO BID #0 12/07/14 Acetaminophen Tab [Tylenol] 650 mg PO Q4HR PRN tab 07/25/17 Atorvastatin [Lipitor] 20 mg PO HS tab 07/25/17 Ciprofloxacin HCl [Cipro] 250 mg PO BID #10 tab 07/25/17 Insulin Glargine [Lantus Vial] 30 unit SQ HS vial 07/25/17 Sennosides-Docusate Sodium 1 each PO BID tab 07/25/17 [Senokot-S] Spironolactone [Aldactone] 12.5 mg PO DAILY tab 07/25/17 polyethylene glycoL 3350 [Miralax] 17 gm PO DAILY pack 07/25/17 Allergies Allergy/AdvReac Type Severity Reaction Status Date / Time aspirin AdvReac Rash/Hives Verified 06/15/24 12:19 butorphanol tartrate AdvReac Rash/Hives Verified 06/15/24 12:19 [From Stadol] codeine AdvReac Rash/Hives Verified 06/15/24 12:19 diazepam [From Valium] AdvReac Rash/Hives Verified 06/15/24 12:19 hydrocodone bitartrate AdvReac Rash/Hives Verified 06/15/24 12:19 [From [place]] hydromorphone [From Dilaudid] AdvReac Unknown Verified 06/15/24 12:19 meperidine HCl [From Demerol] AdvReac Rash/Hives Verified 06/15/24 12:19 morphine AdvReac Rash/Hives Verified 06/15/24 12:19 Penicillins AdvReac Rash/Hives Verified 06/15/24 12:19 procaine HCl [From Novocain] AdvReac Rash/Hives Verified 06/15/24 12:19 sulfamethoxazole AdvReac Rash/Hives Verified 06/15/24 12:19 [From Bactrim] sumatriptan [From Imitrex] AdvReac Rash/Hives Verified 06/15/24 12:19 sumatriptan succinate AdvReac Rash/Hives Verified 06/15/24 12:19 [From Imitrex] tramadol AdvReac Rash/Hives Verified 06/15/24 12:19 trimethoprim [From Bactrim] AdvReac Rash/Hives Verified 06/15/24 12:19 Review of Systems ROS Other: All systems not noted in ROS Statement are negative. <Yamilex Baeza - Last Filed: 06/15/24 13:48> ROS Other: All systems not noted in ROS Statement are negative. <Fito Weems - Last Filed: 06/15/24 17:48> ROS Statement: Those systems with pertinent positive or pertinent negative responses have been documented in the HPI. Review of Systems: CONST: Denies fever EYES: Denies blurry vision ENT: Denies nasal congestion C/V: Denies Chest pain RESP: Denies shortness of breath GI: Denies abdominal pain : Denies dysuria SKIN: Denies rash. MSK: Endorses back pain NEURO: Denies headache (Fito Weems) Past Medical History Past Medical History: Coronary Artery Disease (CAD), Chest Pain / Angina, CVA/TIA, Diabetes Mellitus, GERD/Reflux, Hyperlipidemia, Hypertension, Seizure Disorder Additional Past Medical History / Comment(s): HX MIGRAINE, GOUT, CHRONIC SINUSITIS, LAST SEIZURE IN [place], TIA IN 1970S History of Any Multi-Drug Resistant Organisms: None Reported Past Surgical History: Cholecystectomy, Coronary Bypass/CABG, Heart Catheterization With Stent, Tubal Ligation Additional Past Surgical History / Comment(s): UNSURE HOW MANY STENTS, JULIA CATARACTS, SINUS SX, CABG X3 2009 Past Anesthesia/Blood Transfusion Reactions: No Reported Reaction Date of Last Stent Placement:: UNSURE Past Psychological History: No Psychological Hx Reported Smoking Status: Never smoker Past Alcohol Use History: None Reported Past Drug Use History: None Reported - Past Family History Mother Family Medical History: Coronary Artery Disease (CAD) <Yamilex Baeza - Last Filed: 06/15/24 13:48> General Exam Limitations: no limitations <Yamilex Baeza - Last Filed: 06/15/24 13:48> <Fito Weems - Last Filed: 06/15/24 17:48> - General Exam Comments Initial Comments: Visual Physical Exam Vital signs reviewed General: Well-appearing, nontoxic, no acute distress. Head: Normocephalic, atraumatic Eyes: PERRLA, EOMI ENT: Airway patent Chest: Nonlabored breathing Skin: No visual rash, normal skin tone Neuro: Alert and oriented 3 Musculoskeletal: No gross abnormalities (Yamilex Baeza) General: Appears in no acute distress. HEAD: Normal with no signs of head trauma. EYES: PERRLA, EOMI, conjunctiva normal, no discharge. ENT: Hearing grossly intact, normal oropharynx. RESPIRATORY: Clear breath sounds bilaterally. No wheezes, rales, or rhonchi. C/V: Regular rate and rhythm. S1 and S2 auscultated, no edema, peripheral pulses 2+ and intact throughout ABD: Abd is soft, nontender, nondistended EXT: Normal range of motion, no obvious deformity. Tenderness to palpation of the right paraspinal muscles in the upper lumbar spine. Worse with some movements. No obvious step-offs or deformities appreciated the spine. SKIN: No rashes or lesions observed on exposed skin. NEURO: Alert and oriented x 4. No focal deficits. (Fito Weems) Course Vital Signs 06/15/24 06/15/24 12:17 16:17 Temperature 97.9 F 97 F L Pulse Rate 71 69 Respiratory 20 16 Rate Blood Pressure 141/88 168/84 O2 Sat by Pulse 97 99 Oximetry Medical Decision Making <Yamilex Baeza - Last Filed: 06/15/24 13:48> - Lab Data Result diagrams: 06/15/24 14:43 06/15/24 14:43 <Fito Weems - Last Filed: 06/15/24 17:48> - Medical Decision Making I performed the quick note portion of this chart. Electronically signed by Yamilex Baeza PA-C (Yamilex Baeza) Was pt. sent in by a medical professional or institution ([facility], [employer], urgent care, hospital, or group home...) When possible be specific @ -No Did you speak to anyone other than the patient for history (EMS, parent, family, police, friend...)? What history was obtained from this source @ -No Did you review nursing and triage notes (agree or disagree)? Why? @ -I reviewed and agree with nursing and triage notes Were old charts reviewed (outside hosp., previous admission, EMS record, old EKG, old radiological studies, urgent care reports/EKG's, group home records)? Report findings @ -No old charts were reviewed Differential Diagnosis (chest pain, altered mental status, abdominal pain women, abdominal pain men, vaginal bleeding, weakness, fever, dyspnea, syncope, headache, dizziness, GI bleed, back pain, seizure, CVA, palpatations, mental health, musculoskeletal)? @ -Differential Back Pain: Strain, zoster, cauda equina syndrome, epidural abscess, vertebral osteomyelitis, discitis, fracture, subluxation, disc herniation, DJD, spinal stenosis, dissection, AAA, pancreatitis, peptic ulcer disease, pyelonephritis, kidney stone, this is not meant to be an all-inclusive list. EKG interpreted by me (3pts min.). @ -None done X-rays interpreted by me (1pt min.). @ -Lumbar x-ray remarkable for degenerative changes but no other obvious finding. CT interpreted by me (1pt min.). @ -None done U/S interpreted by me (1pt. min.). @ -None done What testing was considered but not performed or refused? (CT, X-rays, U/S, labs)? Why? @ -Offered CT imaging of the abdomen pelvis however patient declined concerning patient's labs and x-ray unremarkable. What meds were considered but not given or refused? Why? @ -None Did you discuss the management of the patient with other professionals (professionals i.e. , PA, [employer], lab, RT, psych nurse, director of social work, meatman, teacher, facilities officer, clinical case manager)? Give summary @ -No Was smoking cessation discussed for >3mins.? @ -No Was critical care preformed (if so, how long)? @ -No Were there social determinants of health that impacted care today? How? (Homelessness, low income, unemployed, alcoholism, drug addiction, transportation, low edu. Level, literacy, decrease access to med. care, long-term, rehab)? @ -No Was there de-escalation of care discussed even if they declined (Discuss DNR or withdrawal of care, Hospice)? DNR status @ -No What co-morbidities impacted this encounter? (DM, HTN, Smoking, COPD, CAD, Cancer, CVA, ARF, Chemo, Hep., AIDS, mental health diagnosis, sleep apnea, morbid obesity)? @ -None Was patient admitted / discharged? Hospital course, mention meds given and route, prescriptions, significant lab abnormalities, going to OR and other pertinent info. @ -Patient presents with what appears to be musculoskeletal back pain. We will obtain x-ray of the lumbar spine as well as generalized abdominal labs. Patient was in agreement this plan. Patient declines any significant analgesia medications other than lidocaine patch. Given a 1 L fluid bolus. Vital signs are within acceptable limits. Laboratory studies are unremarkable. Slightly elevated lipase of 390 however patient's current pain does not lined up with this being slightly elevated. Low suspicion for this being pancreatitis. Elevation likely related to chronic diabetes. Imaging unremarkable. On reevaluation, patient is feeling improved. We did discuss her workup. I believe it is safe for her to be discharged home. I did offer CT imaging the abdomen pelvis however she did decline. She was in agreement this plan. I instructed the patient to follow up with their PCP in the next 1-3 days. I explained that the patient should return to the emergency department if they experience any worsening symptoms. Strict return precautions were discussed with the patient. The patient expressed understanding of these instructions. I answered all questions that the patient had. The patient was discharged home in good condition with their prescriptions and follow up information. Undiagnosed new problem with uncertain prognosis? @ -No Drug Therapy requiring intensive monitoring for toxicity (Heparin, Nitro, Insulin, Cardizem)? @ -No Were any procedures done? @ -No Diagnosis/symptom? @ -Muscle strain Acute, or Chronic, or Acute on Chronic? @ -Acute Uncomplicated (without systemic symptoms) or Complicated (systemic symptoms)? @ -Uncomplicated Side effects of treatment? @ -No Exacerbation, Progression, or Severe Exacerbation? @ -No Poses a threat to life or bodily function? How? (Chest pain, [place], [place], pneumonia, PE, COPD, DKA, ARF, appy, cholecystitis, CVA, Diverticulitis, Homicidal, Suicidal, threat to staff... and all critical care pts) @ -Unlikely (Fito Weems) - Lab Data Lab Results 06/15/24 06/15/24 06/15/24 Range/Units 14:43 14:43 14:43 WBC 9.5 (3.8-10.6) k/uL RBC 5.16 (3.80-5.40) m/uL Hgb 16.3 H (11.4-16.0) gm/dL Hct 49.5 H (34.0-46.0) % MCV 95.9 (80.0-100.0) fL MCH 31.5 (25.0-35.0) pg MCHC 32.9 (31.0-37.0) g/dL RDW 13.1 (11.5-15.5) % Plt Count 235 (150-450) k/uL MPV 7.5 Neutrophils % 66 % Lymphocytes % 26 % Monocytes % 4 % Eosinophils % 1 % Basophils % 0 % Neutrophils # 6.3 (1.3-7.7) k/uL Lymphocytes # 2.5 (1.0-4.8) k/uL Monocytes # 0.4 (0-1.0) k/uL Eosinophils # 0.1 (0-0.7) k/uL Basophils # 0.0 (0-0.2) k/uL Sodium 140 (137-145) mmol/L Potassium 4.5 (3.5-5.1) mmol/L Chloride 106 (98-107) mmol/L Carbon Dioxide 29 (22-30) mmol/L Anion Gap 5 mmol/L BUN 29 H (7-17) mg/dL Creatinine 1.14 H (0.52-1.04) mg/dL Est GFR (CKD-EPI)AfAm 55 (>60 ml/min/1.73 sqM) Est GFR (CKD-EPI)NonAf 47 (>60 ml/min/1.73 sqM) Glucose 109 H (74-99) mg/dL Plasma Lactic Acid Matthew (0.7-2.0) mmol/L Calcium 10.2 (8.4-10.2) mg/dL Total Bilirubin 0.5 (0.2-1.3) mg/dL AST 40 H (14-36) U/L ALT 44 H (4-34) U/L Alkaline Phosphatase 63 (38-126) U/L Total Protein 7.8 (6.3-8.2) g/dL Albumin 4.5 (3.5-5.0) g/dL Amylase 104 (30-110) U/L Lipase 390 H (23-300) U/L Urine Color Colorless Urine Appearance Clear (Clear) Urine pH 5.5 (5.0-8.0) Ur Specific [place] 1.027 (1.001-1.035) Urine Protein Negative (Negative) Urine Glucose (UA) 4+ H (Negative) Urine Ketones Negative (Negative) Urine Blood Negative (Negative) Urine Nitrite Negative (Negative) Urine Bilirubin Negative (Negative) Urine Urobilinogen <2.0 (<2.0) mg/dL Ur Leukocyte Esterase Negative (Negative) 06/15/24 Range/Units 14:43 WBC (3.8-10.6) k/uL RBC (3.80-5.40) m/uL Hgb (11.4-16.0) gm/dL Hct (34.0-46.0) % MCV (80.0-100.0) fL MCH (25.0-35.0) pg MCHC (31.0-37.0) g/dL RDW (11.5-15.5) % Plt Count (150-450) k/uL MPV Neutrophils % % Lymphocytes % % Monocytes % % Eosinophils % % Basophils % % Neutrophils # (1.3-7.7) k/uL Lymphocytes # (1.0-4.8) k/uL Monocytes # (0-1.0) k/uL Eosinophils # (0-0.7) k/uL Basophils # (0-0.2) k/uL Sodium (137-145) mmol/L Potassium (3.5-5.1) mmol/L Chloride (98-107) mmol/L Carbon Dioxide (22-30) mmol/L Anion Gap mmol/L BUN (7-17) mg/dL Creatinine (0.52-1.04) mg/dL Est GFR (CKD-EPI)AfAm (>60 ml/min/1.73 sqM) Est GFR (CKD-EPI)NonAf (>60 ml/min/1.73 sqM) Glucose (74-99) mg/dL Plasma Lactic Acid Matthew 1.1 (0.7-2.0) mmol/L Calcium (8.4-10.2) mg/dL Total Bilirubin (0.2-1.3) mg/dL AST (14-36) U/L ALT (4-34) U/L Alkaline Phosphatase (38-126) U/L Total Protein (6.3-8.2) g/dL Albumin (3.5-5.0) g/dL Amylase (30-110) U/L Lipase (23-300) U/L Urine Color Urine Appearance (Clear) Urine pH (5.0-8.0) Ur Specific [place] (1.001-1.035) Urine Protein (Negative) Urine Glucose (UA) (Negative) Urine Ketones (Negative) Urine Blood (Negative) Urine Nitrite (Negative) Urine Bilirubin (Negative) Urine Urobilinogen (<2.0) mg/dL Ur Leukocyte Esterase (Negative) Disposition <Yamilex Baeza - Last Filed: 06/15/24 13:48> Is patient prescribed a controlled substance at d/c from ED?: No Time of Disposition: 16:20 <Fito Weems - Last Filed: 06/15/24 17:48> Clinical Impression: Muscle strain Disposition: HOME SELF-CARE Condition: Good Instructions (If sedation given, give patient instructions): Muscle Strain (ED) Referrals: Boaz Mcgovern MD [Primary Care Provider] - 1-2 days
[2024-06-15] MEDS: LIDOCAINE 4% PATCH TOPICAL STA (14:50)
[2024-06-15] MEDS: SODIUM CHLORIDE 0.9% 1,000 ML IV STA (14:50)
[2024-06-15 14:53] LABS: Basophils % (A) 0 %; Eosinophils # (A) 0.1 k/uL (0-0.7); Eosinophils % (A) 1 %; HCT 49.5 % (34.0-46.0); HGB 16.3 gm/dL (11.4-16.0); Lymphocytes # (A) 2.5 k/uL (1.0-4.8); Lymphocytes % (A) 26 %; MCH 31.5 pg (25.0-35.0); MCHC 32.9 g/dL (31.0-37.0); MCV 95.9 fL (80.0-100.0); Mean Platelet Volume 7.5; Monocytes # (A) 0.4 k/uL (0-1.0); Monocytes % (A) 4 %; Neutrophils # (A) 6.3 k/uL (1.3-7.7); Neutrophils % (A) 66 %; Platelet Count 235 k/uL (150-450); RBC 5.16 m/uL (3.80-5.40); RDW 13.1 % (11.5-15.5); WBC 9.5 k/uL (3.8-10.6)
[2024-06-15 15:05] LABS: Appearance,Urine Clear (Clear); Bilirubin,Urine Negative (Negative); Blood,Urine Negative (Negative); Color,Urine Colorless; Glucose,Urine (UA) 4+ (Negative); Ketones,Urine Negative (Negative); Leukocyte Esterase,Urine Negative (Negative); Nitrite,Urine Negative (Negative); PH, Urine 5.5 (5.0-8.0); Protein,Urine Negative (Negative); Specific Gravity,Urine 1.027 (1.001-1.035); Urobilinogen,Urine <2.0 mg/dL (<2.0)
[2024-06-15 15:12] LABS: ALT 44 U/L (4-34); AST 40 U/L (14-36); African American GFR (CKD) 55 (>60 ml/min/1.73 sqM); Albumin 4.5 g/dL (3.5-5.0); Alkaline Phosphatase 63 U/L (38-126); Amylase 104 U/L (30-110); Anion Gap 5 mmol/L; Blood Urea Nitrogen 29 mg/dL (7-17); Calcium 10.2 mg/dL (8.4-10.2); Carbon Dioxide 29 mmol/L (22-30); Chloride 106 mmol/L (98-107); Glucose 109 mg/dL (74-99); Lipase 390 U/L (23-300); Non-African American GFR(CKD) 47 (>60 ml/min/1.73 sqM); Potassium 4.5 mmol/L (3.5-5.1); Sodium 140 mmol/L (137-145); Total Bilirubin 0.5 mg/dL (0.2-1.3); Total Protein 7.8 g/dL (6.3-8.2)
--- NOTE | 2024-06-15 15:57 | XR ---
EXAMINATION TYPE: XR lumbar spine 2 or 3V DATE OF EXAM: 06/15/2024 COMPARISON: None HISTORY: Pain lower right back TECHNIQUE: 3 view lumbar spine FINDINGS: There are 5 lumbar-type vertebral bodies. Pedicles are intact. Disc heights are preserved. Vertebral body heights are preserved. Mild spondylosis is present. Calcification may overlie the righ t kidney. IMPRESSION: 1. No acute osseous abnormality lumbar spine. 2. Mild degenerative changes lumbar spine
[2024-06-15 16:19] VITALS: BP 168/84; PULSE 69; RESP 16; TEMP 97
== END 2024-06-15 16:47 | disposition home or self-care (01) ==
LOC: EC 12:04
CPT/HCPCS: 36415; 72100; 80053; 81003; 82150; 83605; 83690; 85025; 99284

== ENCOUNTER 2025-01-08 10:22 | Emergency (ER) | payer MEDICARE, OTHER ==
[2025-01-08 10:31] VITALS: BP 161/70; PULSE 65; RESP 18; TEMP 98
--- NOTE | 2025-01-08 10:55 | XR ---
EXAMINATION TYPE: XR knee complete RT DATE OF EXAM: 01/08/2025 CLINICAL INDICATION: Female, 74 years old with history of fall injury, pain TECHNIQUE: 3 views of the knee were obtained. COMPARISON: None. FINDINGS: There is no acute fracture/dislocation evident in the right knee. Moderate tricompartment degenerative changes seen with mild to moderate spurring. There is meniscal calcification laterally. There is increased soft tissue density in the suprapatellar bursa consistent with moderate to large s ize joint effusion. IMPRESSION: There is no acute fracture or dislocation in the right knee. [facility], , 01/08/2025 10:53 AM
--- NOTE | 2025-01-08 10:57 | XR ---
EXAMINATION TYPE: XR ankle complete RT DATE OF EXAM: 01/08/2025 CLINICAL INDICATION: Female, 74 years old with history of fall injury, pain TECHNIQUE: Frontal, lateral and oblique images of the right ankle are obtained. COMPARISON: None. FINDINGS: Osseous structures are demineralized. There is well-corticated 9 mm ossific density from t he medial malleolus with prominent bony projection or spur could reflect product of old trauma. Ankle mortise symmetry is preserved. No acute displaced fracture. There is small inferior calcaneal spur. There is a bony projection or enthesopathy along course of the distal Achilles tendon. The overlying soft tissue appears unremarkable. IMPRESSION: There is no acute fracture or dislocation in the right ankle. [facility], , 01/08/2025 10:55 AM
--- NOTE | 2025-01-08 11:41 | ED ---
Lower Extremity Injury HPI - General Chief Complaint: Extremity Injury, Lower Stated Complaint: Fall-R knee injury Time Seen by Provider: 01/08/25 11:40 Source: patient, RN notes reviewed Mode of arrival: ambulatory Limitations: no limitations - History of Present Illness Initial Comments: Quick [id number] female presenting for right knee injury yesterday. States she lost her balance climbing up the porch steps and fell directly onto her right knee. Denies head injury or loss of consciousness. She is able to weight-bear. - Related Data Home Medications Medication Instructions Recorded Confirmed Albuterol Inhaler [Ventolin Hfa 2 puff INHALATION RT-Q4H PRN 12/05/14 07/23/17 Inhaler] Enalapril [Vasotec] 10 mg PO DAILY 12/05/14 07/23/17 Furosemide [Lasix] 40 mg PO QAM 12/05/14 07/23/17 Isosorbide Mononitrate ER [Imdur] 30 mg PO DAILY 12/05/14 07/23/17 allopurinoL [Zyloprim] 300 mg PO DAILY 12/05/14 07/23/17 INSULIN ASPART (NovoLOG) [NovoLOG See Protocol SQ AC-TID 07/23/17 07/23/17 (formulary)] Magnesium Oxide [Mag-Ox] 400 mg PO DAILY 07/23/17 07/23/17 Ubidecarenone [Co Q-10] 100 mg PO DAILY 07/23/17 07/23/17 metFORMIN HCL [Glucophage] 1,000 mg PO BID 07/23/17 07/23/17 Previous Rx's Medication Instructions Recorded Carvedilol 25 mg PO BID #0 12/07/14 Acetaminophen Tab [Tylenol] 650 mg PO Q4HR PRN tab 07/25/17 Atorvastatin [Lipitor] 20 mg PO HS tab 07/25/17 Ciprofloxacin HCl [Cipro] 250 mg PO BID #10 tab 07/25/17 Insulin Glargine (Lantus) [Lantus 30 unit SQ HS vial 07/25/17 Vial] Sennosides-Docusate Sodium 1 each PO BID tab 07/25/17 [Senokot-S] Spironolactone [Aldactone] 12.5 mg PO DAILY tab 07/25/17 polyethylene glycoL 3350 [Miralax] 17 gm PO DAILY pack 07/25/17 Allergies Allergy/AdvReac Type Severity Reaction Status Date / Time aspirin AdvReac Rash/Hives Verified 01/08/25 10:31 butorphanol tartrate AdvReac Rash/Hives Verified 01/08/25 10:31 [From Stadol] codeine AdvReac Rash/Hives Verified 01/08/25 10:31 diazepam [From Valium] AdvReac Rash/Hives Verified 01/08/25 10:31 hydrocodone bitartrate AdvReac Rash/Hives Verified 01/08/25 10:31 [From [place]] hydromorphone [From Dilaudid] AdvReac Unknown Verified 01/08/25 10:31 meperidine HCl [From Demerol] AdvReac Rash/Hives Verified 01/08/25 10:31 morphine AdvReac Rash/Hives Verified 01/08/25 10:31 Penicillins AdvReac Rash/Hives Verified 01/08/25 10:31 procaine HCl [From Novocain] AdvReac Rash/Hives Verified 01/08/25 10:31 sulfamethoxazole AdvReac Rash/Hives Verified 06/15/24 12:19 [From Bactrim] sumatriptan [From Imitrex] AdvReac Rash/Hives Verified 06/15/24 12:19 sumatriptan succinate AdvReac Rash/Hives Verified 06/15/24 12:19 [From Imitrex] tramadol AdvReac Rash/Hives Verified 06/15/24 12:19 trimethoprim [From Bactrim] AdvReac Rash/Hives Verified 06/15/24 12:19 Review of Systems ROS Statement: Those systems with pertinent positive or pertinent negative responses have been documented in the HPI. ROS Other: All systems not noted in ROS Statement are negative. Past Medical History Past Medical History: Coronary Artery Disease (CAD), Chest Pain / Angina, CVA/TIA, Diabetes Mellitus, GERD/Reflux, Hyperlipidemia, Hypertension, Seizure Disorder Additional Past Medical History / Comment(s): HX MIGRAINE, GOUT, CHRONIC SINUSITIS, LAST SEIZURE IN , TIA IN S History of Any Multi-Drug Resistant Organisms: None Reported Past Surgical History: Cholecystectomy, Coronary Bypass/CABG, Heart Catheterization With Stent, Tubal Ligation Additional Past Surgical History / Comment(s): UNSURE HOW MANY STENTS, JULIA CATARACTS, SINUS SX, CABG X3 2009 Past Anesthesia/Blood Transfusion Reactions: No Reported Reaction Date of Last Stent Placement:: UNSURE Past Psychological History: No Psychological Hx Reported Smoking Status: Never smoker Past Alcohol Use History: None Reported Past Drug Use History: None Reported - Past Family History Mother Family Medical History: Coronary Artery Disease (CAD) General Exam - General Exam Comments Initial Comments: Visual Physical Exam Vital signs reviewed General: Well-appearing, nontoxic, no acute distress. Head: Normocephalic, atraumatic Eyes: PERRLA, EOMI ENT: Airway patent Chest: Nonlabored breathing Skin: No visual rash, normal skin tone Neuro: Alert and oriented 3 Musculoskeletal: No gross abnormalities Limitations: no limitations Course Vital Signs 01/08/25 10:27 Temperature 98.0 F Pulse Rate 65 Respiratory 18 Rate Blood Pressure 161/70 O2 Sat by Pulse 100 Oximetry Medical Decision Making - Medical Decision Making I completed the quick note portion of this chart signed Hailey Cochran PA-C Was pt. sent in by a medical professional or institution ([facility], [facility], urgent care, hospital, or half-way...) When possible be specific @ -No Did you speak to anyone other than the patient for history (EMS, parent, family, police, friend...)? What history was obtained from this source @ -No Did you review nursing and triage notes (agree or disagree)? Why? @ -I reviewed and agree with nursing and triage notes Were old charts reviewed (outside hosp., previous admission, EMS record, old EKG, old radiological studies, urgent care reports/EKG's, half-way records)? Report findings @ -No old charts were reviewed Differential Diagnosis (chest pain, altered mental status, abdominal pain women, abdominal pain men, vaginal bleeding, weakness, fever, dyspnea, syncope, headache, dizziness, GI bleed, back pain, seizure, CVA, palpatations, mental health, musculoskeletal)? @ -Differential Musculoskeletal Muscular strain, contusion, ligament sprain, fracture, arthritis, septic arthritis, bursitis, cellulitis, muscle spasm, nerve compression, DVT, arterial occlusion, herpes zoster, electrolyte abnormality, tumor.... This is not meant to be in all inclusive list EKG interpreted by me (3pts min.). @ -None X-rays interpreted by me (1pt min.). @ -X-ray right knee and right ankle reveals no acute process CT interpreted by me (1pt min.). @ -None done U/S interpreted by me (1pt. min.). @ -None done What testing was considered but not performed or refused? (CT, X-rays, U/S, labs)? Why? @ -None What meds were considered but not given or refused? Why? @ -None Did you discuss the management of the patient with other professionals (professionals i.e. DrRadha, PA, [employer], lab, RT, psych nurse, manager social, environmental lawyer, teacher, real estate officer, returned case inspector)? Give summary @ -No Was smoking cessation discussed for >3mins.? @ -No Was critical care preformed (if so, how long)? @ -No Were there social determinants of health that impacted care today? How? (H omelessness, low income, unemployed, alcoholism, drug addiction, transportation, low edu. Level, literacy, decrease access to med. care, residential, rehab)? @ -No Was there de-escalation of care discussed even if they declined (Discuss DNR or withdrawal of care, Hospice)? DNR status @ -No What co-morbidities impacted this encounter? (DM, HTN, Smoking, COPD, CAD, Cancer, CVA, ARF, Chemo, Hep., AIDS, mental health diagnosis, sleep apnea, morbid obesity)? @ -None Was patient admitted / discharged? Hospital course, mention meds given and route, prescriptions, significant lab abnormalities, going to OR and other pertinent info. @ -Patient left AGAINST MEDICAL ADVICE. 74-year-old female presenting for right knee injury status post mechanical fall yesterday. No head injury or loss of consciousness. I evaluated patient in the waiting room. Patient is able to weight-bear. Neurovascularly intact. X-ray right knee and right ankle reveals no acute process. Patient left AGAINST MEDICAL ADVICE from the waiting room before results were discussed. Case was discussed with ED attending Dr. Roca. Undiagnosed new problem with uncertain prognosis? @ -No Drug Therapy requiring intensive monitoring for toxicity (Heparin, Nitro, Insulin, Cardizem)? @ -No Were any procedures done? @ -No Diagnosis/symptom? @ -Right knee injury Acute, or Chronic, or Acute on Chronic? @ -Acute Uncomplicated (without systemic symptoms) or Complicated (systemic symptoms)? @ -Uncomplicated Side effects of treatment? @ -No Exacerbation, Progression, or Severe Exacerbation? @ -No Poses a threat to life or bodily function? How? (Chest pain, USA, VT, pneumonia, PE, COPD, DKA, ARF, appy, cholecystitis, CVA, Diverticulitis, Homicidal, Suicidal, threat to staff... and all critical care pts) @ -No Disposition Clinical Impression: Right knee injury Disposition: LEFT AGAINST MEDICAL ADVICE Referrals: Boaz Mcgovern MD [Primary Care Provider] - 1-2 days Time of Disposition: 12:21
== END 2025-01-08 12:00 | disposition left against medical advice (07) ==
LOC: EC 10:22
DX: S89.91XA Unspecified injury of right lower leg, initial encounter (principal); Z53.29 Procedure and treatment not carried out because of patient's decision for other reasons; Z88.0 Allergy status to penicillin; Z88.1 Allergy status to other antibiotic agents; Z88.2 Allergy status to sulfonamides; Z88.5 Allergy status to narcotic agent; Z88.6 Allergy status to analgesic agent; Z88.8 Allergy status to other drugs, medicaments and biological substances; Z86.73 Personal history of transient ischemic attack (TIA), and cerebral infarction without residual deficits; W10.8XXA Fall (on) (from) other stairs and steps, initial encounter
CPT/HCPCS: 99283